=== PATIENT | male | born 1980 | race Caucasian/White ===

== ENCOUNTER 2016-11-14 15:17 | Emergency (ER) | payer MEDICARE, MEDICAID ==
[2016-11-14 15:28] VITALS: BP 145/73
--- NOTE | 2016-11-14 21:43 | ED ---
Throat Pain/Nasal Congestion - HPI Summary HPI Summary: Patient presents to the ED with swelling over the right parotid gland x 2 hours. He first noticed the swelling immediatley after eating. He has never had this before. The area has decreased in size since arrival to the ED according to him. The area is painless. He denies ear pain, eye pain, [place] or neck pain. Denies mouth pain or other symptoms. He is a smoker. He is otherwise healthy and has no other concerns. - History of Current Complaint Chief Complaint: EDGeneral Time Seen by Provider: 11/14/16 15:42 Hx Obtained From: Patient Onset/Duration: Sudden Onset Severity: Moderate - Epiglottits Risk Factors Epiglottis Risk Factors: Negative - Allergies/Home Medications Allergies/Adverse Reactions: Allergies Allergy/AdvReac Type Severity Reaction Status Date / Time No Known Allergies Allergy Verified 05/31/15 10:27 PMH/Surg Hx/FS Hx/Imm Hx Previously Healthy: Yes Psychiatric History: Reports: Hx of Violent Episodes Against Others, Other Psychiatric Issues/Disorders Denies: Hx Eating Disorder - Surgical History Surgery Procedure, Year, and Place: hiatal hernia repair - Immunization History Hx Pertussis Vaccination: No Immunizations Up to Date: Unable to Obtain/Confirm Infectious Disease History: No Infectious Disease History: Denies: History Other Infectious Disease, Traveled Outside the [place] in Last 30 Days - Family History Known Family History: Positive: Unknown - Social History Occupation: Employed Full-time Lives: With Family Alcohol Use: None Hx Substance Use: No Substance Use Type: Reports: None Smoking Status (MU): Light Every Day Tobacco Smoker Type: Cigarettes Amount Used/How Often: 1/2 ppd Have You Smoked in the Last Year: Yes Review of Systems Constitutional: Negative Negative: Fever, Chills, Fatigue Negative: Photophobia, Blurred Vision Negative: Epistaxis, Dental Pain, Nasal Discharge Cardiovascular: Negative Respiratory: Negative Positive: no symptoms reported, see HPI Musculoskeletal: Negative Skin: Negative Neurological: Negative All Other Systems Reviewed And Are Negative: Yes Physical Exam Triage Information Reviewed: Yes Vital Signs On Initial Exam: Initial Vitals Temp Pulse Resp BP Pulse Ox 97.2 F 80 20 145/73 98 11/14/16 15:26 11/14/16 15:26 11/14/16 15:26 11/14/16 15:26 11/14/16 15:26 Vital Signs Reviewed: Yes Appearance: Positive: Well-Appearing, No Pain Distress, Well-Nourished Skin: Positive: Warm, Skin Color Reflects Adequate Perfusion Head/Face: Positive: Other - slight swelling over the parotid gland on the right side without pain. Negative: Temporal Artery Tenderness, TMJ Tenderness ENT: Positive: Pharynx normal, TMs normal. Negative: Pharyngeal erythema, Nasal congestion, Nasal drainage, Tonsillar swelling, Tonsillar exudate, Muffled /hoarse voice, Dental tenderness Neck: Positive: Supple, No Lymphadenopathy Respiratory/Lung Sounds: Positive: Clear to Auscultation, Breath Sounds Present Cardiovascular: Positive: Normal, RRR, Pulses are Symmetrical in both Upper and Lower Extremities Musculoskeletal: Positive: Normal, Strength/ROM Intact Neurological: Positive: Sensory/Motor Intact, Alert, Oriented to Person Place, Time, Speech Normal Psychiatric: Positive: Normal AVPU Assessment: Alert Diagnostics - Vital Signs Vital Signs Temp Pulse Resp BP Pulse Ox 11/14/16 15:26 97.2 F 80 20 145/73 98 - Laboratory Lab Statement: Any lab studies that have been ordered have been reviewed, and results considered in the medical decision making process. EENT Course/Dx - Course Course Of Treatment: Patient is evaluated for right parotid gland swelling which occurred 2 hours ago and since has almost resolved per patient. Denies pain. Discussed with patient this is likely d/t a salivary stone. He states he has been dehyrated lately and he is a smoker and has a history of periodontal disease. These are all risk factors for sialadenitis which often when occurs - will be painless and resolve rather quickly. Discussed with patient treatment and how we will defer at this time for any antibiotics based on the resolution of symptoms. He is encouraged to use mouth wash - biotene. Stop smoking. Suck on hard candies - specifically lemon drops. He agrees and will follow up if symptoms worsen. - Differential Diagnoses Differential Diagnoses: Other - sialadenitis, parotid gland trauma, mumps, dental infection - Diagnoses Provider Diagnoses: Sialadenitis Discharge - Discharge Plan Condition: Stable Disposition: HOME Patient Education Materials: Parotid Duct Obstruction (ED), Sialoadenitis (ED) Referrals: No Primary Care Phys,NOPCP [Primary Care Provider] - Additional Instructions: Lemon drops are best, but any hard candy will work You can buy sugar free lemon drops in the candy section of any store Drink plenty of fluids If you develop any pain, return to the ED I do not feel you need antibiotics right now as the swelling has reduced, but if pain worsens or you notice worsening swelling - return to ED Stones usually will go away on their own with some help with fluids and hard sour candy.
== END 2016-11-14 17:56 | disposition home or self-care (01) ==
LOC: ED 15:17
DX: K11.20 Sialoadenitis, unspecified (principal); F17.210 Nicotine dependence, cigarettes, uncomplicated
CPT/HCPCS: 99282

== ENCOUNTER 2018-06-06 23:21 | Emergency (ER) | payer MEDICARE, MEDICAID ==
[2018-06-06] MEDS ORDERED: Clindamycin CAP* 150 MG PO ONE (23:56)
[2018-06-07 00:22] VITALS: BP 177/88
--- NOTE | 2018-06-07 02:16 | ED ---
Throat Pain/Nasal Congestion - HPI Summary HPI Summary: Patient is a 37-year-old male who presents to emergency department for dental pain and facial swelling. Patient states he called his dentist several days ago for dental pain and was started on penicillin. Patient states he took a few tablets and stopped taking prescription because he forgot. Patient states today he noticed facial swelling and was feeling feverish at work. No relevant past medical history. Symptoms are mild in severity. Touching affected area makes symptoms worse. Nothing makes symptoms better. Patient notes he has an apartment with his dentist on Friday. - History of Current Complaint Chief Complaint: EDDentalPain Time Seen by Provider: 06/06/18 23:39 Hx Obtained From: Patient - Allergies/Home Medications Allergies/Adverse Reactions: Allergies Allergy/AdvReac Type Severity Reaction Status Date / Time No Known Allergies Allergy Verified 05/31/15 10:27 Home Medications: Home Medications Metformin HCl [Metformin HCl ER] 500 mg PO DAILY 06/06/18 [History Confirmed ] Penicillin VK 500 MG TAB(NF) [Penicillin VK 500 mg Tab] 500 mg PO QID 06/06/18 [ History Confirmed 06/06/18] PMH/Surg Hx/FS Hx/Imm Hx Previously Healthy: Yes Psychiatric History: Reports: Hx of Violent Episodes Against Others, Other Psychiatric Issues/Disorders Denies: Hx Eating Disorder - Surgical History Surgery Procedure, Year, and Place: hiatal hernia repair Infectious Disease History: No Infectious Disease History: Denies: History Other Infectious Disease, Traveled Outside the [place] in Last 30 Days - Family History Known Family History: Positive: Unknown - Social History Occupation: Employed Full-time Lives: With Family Alcohol Use: None Hx Substance Use: No Substance Use Type: Reports: None Smoking Status (MU): Light Every Day Tobacco Smoker Type: Cigarettes Amount Used/How Often: 1/2 ppd Have You Smoked in the Last Year: Yes Review of Systems Positive: Chills Positive: Dental Pain Gastrointestinal: Negative Negative: Vomiting, Nausea All Other Systems Reviewed And Are Negative: Yes Physical Exam Triage Information Reviewed: Yes Vital Signs On Initial Exam: Initial Vitals Temp Pulse Resp BP Pulse Ox 98.8 F 88 18 155/93 99 06/06/18 23:35 06/06/18 23:35 06/06/18 23:35 06/06/18 23:35 06/06/18 23:35 Vital Signs Reviewed: Yes Appearance: Positive: Well-Appearing - Pt. sitting on bed in NAD. Skin: Positive: Warm, Dry Head/Face: Positive: Normal Head/Face Inspection Eyes: Positive: Normal, EOMI, JENNIE Dental: Positive: Other - Poor dentition throughout. Pain and decay noted to right lateral top incisor. No drainable abscess. Mild edema to upper lip and maxillary region. No trismus, swelling under tongue or submandibular edema. Neck: Positive: Supple, Nontender, No Lymphadenopathy Neurological: Positive: Normal, CN Intact II-III Psychiatric: Positive: Affect/Mood Appropriate Diagnostics - Vital Signs Vital Signs Temp Pulse Resp BP Pulse Ox 06/07/18 00:21 99.4 F 83 18 177/88 100 06/06/18 23:35 98.8 F 88 18 155/93 99 - Laboratory Lab Statement: Any lab studies that have been ordered have been reviewed, and results considered in the medical decision making process. EENT Course/Dx - Course Course Of Treatment: Patient presenting with likely dental abscess. He notes he was on penicillin for a few days without improvement. Was switched to clindamycin. Advised warm compresses. Ibuprofen for pain and swelling as directed. To follow up with dentist on Friday as scheduled. We'll return to the ER for increased pain, swelling, fever or if concerned. Patient understands and agrees with plan. - Differential Diagnoses Differential Diagnoses: Dental Abscess, Dental Caries, Periodontic Abscess - Diagnoses Provider Diagnoses: Dental abscess Discharge - Sign-Out/Discharge Documenting (check all that apply): Patient Departure Patient Received Moderate/Deep Sedation with Procedure: No - Discharge Plan Condition: Good Disposition: HOME Prescriptions: Clindamycin HCl 300 mg PO QID #40 capsule Patient Education Materials: Dental Abscess (ED) Referrals: [facility] [Outside] Additional Instructions: Follow up with your dentist on Friday as scheduled Take Clindamycin as directed Continue ibuprofen as directed Apply warm compresses to face Return to ER for increased pain, swelling, fever, or if concerned - Billing Disposition and Condition Condition: GOOD Disposition: Home
== END 2018-06-07 00:21 | disposition home or self-care (01) ==
LOC: ED 23:21
DX: K04.7 Periapical abscess without sinus (principal); R22.0 Localized swelling, mass and lump, head; F17.210 Nicotine dependence, cigarettes, uncomplicated; K08.89 Other specified disorders of teeth and supporting structures
CPT/HCPCS: 99282; A9270-GY

== ENCOUNTER 2019-03-10 12:20 | Emergency (ER) | payer MEDICARE, MEDICAID ==
--- OUTSIDE RECORDS SUMMARY | 2019-03-10 12:33 | XMS REPORT ---
:1980 Author Organization [facility] Care Team Providers Name Role Phone Zak Wilson Primary Care Physician Unavailable Allergies, Adverse Reactions, Alerts Allergy Code CodeSystem Reaction Severity Criticality Status Start Substance Date Moderate Medications Medication Medication Medication Start Stop Route Dose Status Fill Code CodeSystem Date Date Instructions clozapine 213155 RxNorm 2019- oral 200 mg 1 completed Take 1 tablet 03-05 07-09 tablet at at bedtime bedtime for 28 day(s) clonazepam 19740327 RxNorm 2019- oral 1 mg 1 completed Take 1 tablet 530 -28 tablet at at bedtime bedtime for 30 day(s) clozapine 452879 RxNorm 0 oral 50 mg 1 active Take 1 tablet 7-09 tablet at at bedtime bedtime for 28 day(s) lithium 19770925 RxNorm oral 300 mg 5 active Take 5 carbonate 7-09 capsule capsule at at bedtime for bedtime 30 day(s) clonazepam 19740327 RxNorm 0 oral 1 mg 1 active Take 1 tablet 7-30 tablet at at bedtime bedtime for 30 day(s) clonazepam 19740327 RxNorm 2019- oral 1 mg 1 completed Take 1 tablet 05-18 05-30 tablet at at bedtime bedtime for 30 day(s) clozapine 19740421 RxNorm 2019- oral 100 mg 1 completed Take 1 tablet 03-05 07-09 tablet at at bedtime bedtime for 28 day(s) lithium 19770925 RxNorm 2019- oral 300 mg completed for 30 carbonate 1- 07-09 capsule day(s) clozapine 926789 RxNorm 0 2019- oral 50 mg 1 completed Take 1 tablet 03-05 07-09 tablet at at bedtime bedtime for 28 day(s) metformin 792035 RxNorm 0 2019- oral 500 mg completed for 30 3-18 06-18 tablet day(s) extended release 24 hr clozapine 955468 RxNorm 2019-0 oral 100 mg 1 active Take 1 tablet 7-09 tablet at at bedtime bedtime for 28 day(s) clozapine 835807 RxNorm 2019-0 oral 200 mg 1 active Take 1 tablet 7-09 tablet at at bedtime bedtime for 28 day(s) metformin 596839 RxNorm 2019-0 oral 500 mg 2 active Take 2 tablet 6-18 tablet at bedtime extended for 30 day(s) release 24 hr at bedtime Problems Problem Name Code CodeSystem Alternate Alternate Start End Status Narrative Code CodeSystem Date Date Schizoaffective 98830759 SNOMED-CT Active disorder, manic 3-22 type Relevant diagnostic tests/laboratory data Narrative No Information Procedures Procedure Code CodeSystem Target Date of Status Service Device Device Device Name Site Procedure Delivery Code Name UID Location Psychotherap [id number] SNOMED-CT () 2019-01-05 complete Mental y, 45 04 d Health- minutes with [place] patient [address], [id number] [phone] Preventive 103880 SNOMED-CT () 2018-05-25 complete Mental medicine 0 d Health- counseling [place] and/or risk [place] factor [address] [facility] [address], (s) provided [place], to an [place], individual [id number] (separate [id number] procedure); approximatel y 15 minutes Preventive 680765 SNOMED-CT () 2018-12-15 complete Mental medicine 0 d Health- counseling [place] and/or risk [place] factor [address] [facility] [address], (s) provided [place], to [place], individual [id number] (separate [id number] procedure); approximatel y 15 minutes Preventive 215515 SNOMED-CT () 2018-11-18 complete Mental medicine 0 d Health- counseling [place] and/or risk [place] factor [address] [facility] [address], (s) provided [place], to [place], individual [phone] (separate [id number] procedure); approximatel y 15 minutes Preventive 073213 SNOMED-CT () 2018-09-21 complete Mental medicine 0 d Health- counseling [place] and/or risk [place] factor [address] [facility] [address], (s) provided [place], to [place], individual [phone] (separate [id number] procedure); approximatel y 15 minutes Preventive 139144 SNOMED-CT () 2018-06-22 complete Mental medicine 0 d Health- counseling [place] and/or risk [address], (s) [facility], to an [place], individual [phone] (separate [id number] procedure); approximatel y 15 minutes Office or 101072 SNOMED-CT () 2018-07-07 complete Mental other 7 d Health- outpatient [place] visit for [address], [facility], of an [place], established [id number] patient, [phone] which requires at least 2 of these 3 [place] components: An expanded problem focused history; An expanded problem focused examination; Medical decision making of low Office or 545217 SNOMED-CT () 2018-11-03 complete Mental other 7 d Health- outpatient [place] visit for [address], of [place], established [id number] patient, [phone] which requires at least 2 of these 3 [place] components: An expanded problem focused history; An expanded problem focused examination; Medical decision making of low Office or 867808 SNOMED-CT () 2018-08-04 complete Mental other 7 d Health- outpatient [place] visit for [address], of [place], established [id number] patient, [phone] which requires at least 2 of these 3 [place] components: An expanded problem focused history; An expanded problem focused examination; Medical decision making of low SNOMED-CT () 2018-06-15 complete Mental d Health- [place], [id number] [id number] SNOMED-CT () 2018-07-01 complete Mental d Health- [place], [id number] [phone] SNOMED-CT () 2018-08-10 complete Mental d Health- [place], [id number] [id number] SNOMED-CT () 2018-08-24 complete Mental d Health- [place], [id number] [phone] SNOMED-CT () 2018-09-02 complete Mental d [address], [id number] [phone] SNOMED-CT () 2018-09-16 complete Mental d [address], [id number] [phone] SNOMED-CT () 2018-07-27 complete Mental d [address], [id number] [phone] SNOMED-CT () 2018-10-06 [facility] Mental d [address], [id number] [id number] SNOMED-CT () 2018-10-20 [facility] Mental d [address], [id number] [id number] SNOMED-CT () 2018-11-03 [facility] Mental d [address], [id number] [phone] SNOMED-CT () 2018-11-25 [facility] Mental d [address], [id number] [phone] Encounters/Encounter Diagnoses Encounter Encounter Diagnosis Diagnosis Name Diagnosis Date of Service Name Code Code CodeSystem Diagnosis Delivery Location [facility] [id number] Schizoaffective SNOMED-CT 2019-01-11 Behavioral Monitoring - disorder, manic Health 15 min type Clinic , , , Vital Signs No Information Social History Element Description Description Start End Code CodeSystem AdditionalInfo Date Date SexAssignedAtBirth Male 1981-0 M AdministrativeGender 7-19 Hospital Discharge Instructions Reason For Referral Medical Equipment FDA Assessments
--- OUTSIDE RECORDS SUMMARY | 2019-03-10 12:33 | XMS REPORT ---
:1980 Author Organization [facility] Care Team Providers Name Role Phone Katie Zak Primary Care Physician Unavailable Allergies, Adverse Reactions, Alerts Allergy Code CodeSystem Reaction Severity Criticality Status Start Substance Date Moderate Medications Medication Medication Medication Start Stop Route Dose Status Fill Code CodeSystem Date Date Instructions clonazepam [id number] RxNorm 2019- oral 1 mg 1 completed Take 1 tablet 4 05-30 tablet at at bedtime bedtime for 30 day(s) metformin 441477 RxNorm 2018-0 oral 500 mg 2 active Take 2 tablet 6-18 tablet at bedtime extended for 30 day(s) release 24 hr at bedtime clozapine 19740421 RxNorm 2019- oral 100 mg 1 completed Take 1 tablet 1-17 07-09 tablet at at bedtime bedtime for 28 day(s) clozapine 466933 RxNorm 2018-0 2019- oral 50 mg 1 completed Take 1 tablet 1-17 07-09 tablet at at bedtime bedtime for 28 day(s) lithium 19770925 RxNorm 0 2019- oral 300 mg completed for 30 carbonate 1- 07-09 capsule day(s) clozapine 338837 RxNorm 2019-0 oral 50 mg 1 active Take 1 tablet 7-09 tablet at at bedtime bedtime for 28 day(s) clozapine 19740421 RxNorm 2019-0 oral 100 mg 1 active Take 1 tablet 7-09 tablet at at bedtime bedtime for 28 day(s) lithium 19770925 RxNorm 2019-0 oral 300 mg 5 active Take 5 carbonate 7-09 capsule capsule at at bedtime for bedtime 30 day(s) clonazepam 19740327 RxNorm 0 2019- oral 1 mg 1 completed Take 1 tablet 5-30 07-28 tablet at at bedtime bedtime for 30 day(s) clozapine 662433 RxNorm 2019-0 oral 200 mg 1 active Take 1 tablet 7-09 tablet at at bedtime bedtime for 28 day(s) clozapine 979846 RxNorm 2019-0 2019- oral 200 mg 1 completed Take 1 tablet 03-05 07-09 tablet at at bedtime bedtime for 28 day(s) metformin 840666 RxNorm 2019- oral 500 mg completed for 30 3-18 06-18 tablet day(s) extended release 24 hr clonazepam 266336 RxNorm oral 1 mg 1 active Take 1 tablet 7-30 tablet at at bedtime bedtime for 30 day(s) Problems Problem Name Code CodeSystem Alternate Alternate Start End Status Narrative Code CodeSystem Date Date Cannabis [id number] SNOMED-CT 2018-02 Active dependence, in 2-13 remission Schizoaffective 87871109 SNOMED-CT Active disorder, manic 3-22 type Relevant diagnostic tests/laboratory data Narrative No Information Procedures Procedure Code CodeSystem Target Date of Status Service Device Device Device Name Site Procedure Delivery Code Name UID Location Psychotherap [id number] SNOMED-CT () 2019-02-02 complete Mental y, 45 04 d Health- minutes with [place] patient [address], [id number] [phone] Psychotherap [id number] SNOMED-CT () 2019-01-05 complete Mental y, 45 04 d Health- minutes with [place] patient [address], [id number] [phone] Preventive 733601 SNOMED-CT () 2019-01-11 complete Mental medicine 0 d Health- counseling [place] and/or risk [facility] factor [address] [place] [address], (s) provided [place], to an [facility] individual [phone] (separate [id number] procedure); approximatel y 15 minutes Preventive 229310 SNOMED-CT () 2018-05-25 complete Mental medicine 0 d Health- counseling [place] and/or risk [place] factor [address] [place] [address], (s) provided [place], to an [place], individual [phone] (separate [id number] procedure); approximatel y 15 minutes Preventive 124802 SNOMED-CT () 2018-12-15 complete Mental medicine 0 d Health- counseling [place] and/or risk [facility] factor [address] [place] [address], (s) provided [place], to an [place], individual [phone] (separate [id number] procedure); approximatel y 15 minutes Preventive 140373 SNOMED-CT () 2018-11-18 complete Mental medicine 0 d Health- counseling [place] and/or risk [place] factor [address] [place] [address] Street, (s) provided [place], to an [place], individual [phone] (separate [id number] procedure); approximatel y 15 minutes Preventive 896483 SNOMED-CT () 2018-09-21 complete Mental medicine 0 d Health- counseling [place] and/or risk [place] factor [address] [facility] [address], (s) provided [place], to an [place], individual [phone] (separate [id number] procedure); approximatel y 15 minutes Preventive 755092 SNOMED-CT () 2018-06-22 complete Mental medicine 0 d Health- counseling [place] and/or risk [place] [address] [place] [address] Street, (s) provided [place], to an [place], individual [phone] (separate [id number] procedure); approximatel y 15 minutes Office or 910050 SNOMED-CT () 2018-07-07 complete Mental other 7 d Health- outpatient [place] visit for [address], of an [place], established [id number] patient, [phone] which requires at least 2 of these 3 [place] components: An expanded problem focused history; An expanded problem focused examination; Medical decision making of low Office or 925231 SNOMED-CT () 2018-11-03 complete Mental other 7 d Health- outpatient [place] visit for [address], of an [place], established [id number] patient, [phone] which requires at least 2 of these 3 [place] components: An expanded problem focused history; An expanded problem focused examination; Medical decision making of low Office or 789388 SNOMED-CT () 2018-08-04 complete Mental other 7 d Health- outpatient [place] visit for [address], of an [place], established [id number] patient, [phone] which requires at least 2 of these 3 [place] components: An expanded problem focused history; An expanded problem focused examination; Medical decision making of low Office or 679877 SNOMED-CT () 2019-02-02 complete Mental other 8 d Health- outpatient [place] visit for [address], [facility] [place], an [place], established [id number] patient, [phone] which requires at least 2 of these 3 [place] components: A detailed history; A detailed examination; Medical decision making of moderate complexity. Counseling and/o SNOMED-CT () 2019-02-09 [facility] Mental d [address], [id number] [phone] SNOMED-CT () 2019-01-25 complete Mental d [address], [id number] [phone] SNOMED-CT () 2018-06-15 complete Mental d [address], [id number] [phone] SNOMED-CT () 2018-07-01 complete Mental d [address], [id number] [phone] SNOMED-CT () 2018-08-10 complete Mental d [address], [id number] [phone] SNOMED-CT () 2018-08-24 complete Mental d [address], [id number] [phone] SNOMED-CT () 2018-11-25 complete Mental d [address], [id number] [phone] SNOMED-CT () 2018-09-02 complete Mental d [address], [id number] [phone] SNOMED-CT () 2018-09-16 complete Mental d [address], [id number] [phone] SNOMED-CT () 2018-07-27 complete Mental d [address], [id number] [phone] SNOMED-CT () 2018-10-06 complete Mental d [address], [id number] [phone] SNOMED-CT () 2018-10-20 complete Mental d [address], [id number] [phone] SNOMED-CT () 2018-11-03 complete Mental d [address], [id number] [phone] Encounters/Encounter Diagnoses Encounter Name Encounter Diagnosis Diagnosis Name Diagnosis Date of Service Code Code CodeSystem Diagnosis Delivery Location Psychotherapy - [id number] Schizoaffective SNOMED-CT 2019-02-09 Behavioral Individual 30 disorder, manic Health min type Clinic [address] [place] [address], [phone] Vital Signs No Information Social History Element Description Description Start End Code CodeSystem AdditionalInfo Date Date SexAssignedAtBirth Male 1981-0 M AdministrativeGender 09-04 Hospital Discharge Instructions Reason For Referral Medical Equipment FDA Assessments
--- OUTSIDE RECORDS SUMMARY | 2019-03-10 12:33 | XMS REPORT ---
:1980 Author Organization [facility] Care Team Providers Name Role Phone Zak Wilson Primary Care Physician Unavailable Allergies, Adverse Reactions, Alerts Allergy Code CodeSystem Reaction Severity Criticality Status Start Substance Date Moderate Medications Medication Medication Medication Start Stop Route Dose Status Fill Code CodeSystem Date Date Instructions lithium 19770925 RxNorm 0 oral 300 mg 5 active Take 5 carbonate 7-09 capsule capsule at at bedtime for bedtime 30 day(s) lithium 19770925 RxNorm 0 2019- oral 300 mg completed for 30 carbonate 1-09 07-09 capsule day(s) clozapine 861013 RxNorm 2019-0 oral 200 mg 1 active Take 1 tablet 7-09 tablet at at bedtime bedtime for 28 day(s) clozapine 557904 RxNorm 2019-0 oral 50 mg 1 active Take 1 tablet 7-09 tablet at at bedtime bedtime for 28 day(s) clozapine 903458 RxNorm 2018-0 2019- oral 100 mg 1 completed Take 1 tablet 1-17 07-09 tablet at at bedtime bedtime for 28 day(s) metformin 700126 RxNorm 2019-0 oral 500 mg 2 active Take 2 tablet 6-18 tablet at bedtime extended for 30 day(s) release 24 hr at bedtime clozapine 397077 RxNorm 2019-0 2019- oral 50 mg 1 completed Take 1 tablet 1-17 07-09 tablet at at bedtime bedtime for 28 day(s) clozapine 589680 RxNorm 2019-0 oral 100 mg 1 active Take 1 tablet 7-09 tablet at at bedtime bedtime for 28 day(s) clonazepam 19740327 RxNorm 2019-0 2019- oral 1 mg 1 completed Take 1 tablet 4 05-30 tablet at at bedtime bedtime for 30 day(s) clonazepam 19740327 RxNorm 2019-0 2019- oral 1 mg 1 completed Take 1 tablet 530 07-28 tablet at at bedtime bedtime for 30 day(s) clozapine 812353 RxNorm 2019-0 2019- oral 200 mg 1 completed Take 1 tablet 1-17 07-09 tablet at at bedtime bedtime for 28 day(s) clonazepam 373104 RxNorm oral 1 mg 1 active Take 1 tablet 7-30 tablet at at bedtime bedtime for 30 day(s) metformin 964494 RxNorm 2019- oral 500 mg completed for 30 3-18 06-18 tablet day(s) extended release 24 hr Problems Problem Name Code CodeSystem Alternate Alternate Start End Status Narrative Code CodeSystem Date Date Cannabis 39882716 SNOMED-CT 2018-02 Active dependence, in 2-13 remission Schizoaffective 78608782 SNOMED-CT Active disorder, manic 3-22 type Relevant diagnostic tests/laboratory data Narrative No Information Procedures Procedure Code CodeSystem Target Date of Status Service Device Device Device Name Site Procedure Delivery Code Name UID Location Psychotherap [id number] SNOMED-CT () 2019-01-05 complete Mental y, 45 04 d Health- minutes with Coffee patient [address], [id number] Preventive 813332 SNOMED-CT () 2019-01-11 complete Mental medicine 0 d Health- counseling [place] and/or risk [place] factor [address], (s) provided [place], to an [facility] individual [id number] (separate [id number] procedure); approximatel y 15 minutes Preventive 838542 SNOMED-CT () 2018-05-25 complete Mental medicine 0 d Health- counseling [place] and/or risk [place] factor [address], (s) [place], [facility] [phone] (separate [id number] procedure); approximatel y 15 minutes Preventive 002149 SNOMED-CT () 2018-12-15 complete Mental medicine 0 d Health- counseling [place] and/or risk [place] factor [address], (s) provided [place], to an [facility], individual [phone] (separate [id number] procedure); approximatel y 15 minutes Preventive 899118 SNOMED-CT () 2018-11-18 complete Mental medicine 0 d Health- counseling [place] and/or risk [place] factor [address], (s) provided [place], to an [facility], individual [phone] (separate [id number] procedure); approximatel y 15 minutes Preventive 637891 SNOMED-CT () 2018-09-21 complete Mental medicine 0 d Health- counseling [place] and/or risk [address], (s) provided [place], to an [facility], individual [phone] (separate [id number] procedure); approximatel y 15 minutes Preventive 788391 SNOMED-CT () 2018-06-22 complete Mental medicine 0 d Health- counseling [place] and/or risk [address], (s) provided [place], to an [facility], individual [phone] (separate [phone] procedure); approximatel y 15 minutes Office or 597665 SNOMED-CT () 2018-07-07 complete Mental other 7 d Health- outpatient [place] visit for [address], of an [facility], established [id number] patient, [id number] which requires at least 2 of these 3 [place] components: An expanded problem focused history; An expanded problem focused examination; Medical decision making of low Office or 958659 SNOMED-CT () 2018-11-03 complete Mental other 7 d Health- outpatient Coffee visit for [address], of an [place], established [phone] patient, [id number] which requires at least 2 of these 3 [place] components: An expanded problem focused history; An expanded problem focused examination; Medical decision making of low Office or 092047 SNOMED-CT () 2018-08-04 complete Mental other 7 d Health- outpatient [place] visit for [address], of an [place], established [id number] patient, [id number] which requires at least 2 of these 3 [place] components: An expanded problem focused history; An expanded problem focused examination; Medical decision making of low SNOMED-CT () 2018-06-15 complete Mental d Health- [address], [id number] SNOMED-CT () 2018-07-01 complete Mental d Health- [address], [id number] SNOMED-CT () 2018-08-10 complete Mental d [address], [id number] SNOMED-CT () 2018-08-24 complete Mental d [address], [id number] SNOMED-CT () 2018-09-02 [facility] Mental d [address], [id number] SNOMED-CT () 2018-09-16 [facility] Mental d [address], [id number] SNOMED-CT () 2018-07-27 [facility] Mental d [address], [id number] SNOMED-CT () 2018-10-06 [facility] Mental d [address], [id number] SNOMED-CT () 2018-10-20 [facility] Mental d [address], [id number] SNOMED-CT () 2018-11-03 [facility] Mental d [address], [id number] SNOMED-CT () 2018-11-25 [facility] Mental d [address], [id number] SNOMED-CT () 2019-01-25 [facility] Mental d [address], [id number] Encounters/Encounter Diagnoses Encounter Name Encounter Diagnosis Diagnosis Name Diagnosis Date of Service Code Code CodeSystem Diagnosis Delivery Location [facility] [id number] Schizoaffective SNOMED-CT 2019-02-02 Behavioral Individual 30 disorder, manic Health min type Clinic , , , Vital Signs No Information Social History Element Description Description Start End Code CodeSystem AdditionalInfo Date Date SexAssignedAtBirth Male 1981-0 M AdministrativeGender 7-19 Hospital Discharge Instructions Reason For Referral Medical Equipment FDA Assessments
--- OUTSIDE RECORDS SUMMARY | 2019-03-10 12:33 | XMS REPORT | Continuity of Care Document ---
:1980 External Reference #:[id number] Author Name Linda Lezama, DERICK Address [address] [place] [address] Care Team Providers Name Role Phone [facility] - Care Team Information [facility] [phone] [facility] - Surgery Care Team Information [facility] [phone] Niranjan Jordan MD - Family Care Team Information [employer] [facility] [phone] Medicine Problems Active Problems Provider Date Gastroesophageal reflux disease Haroon Paul M.D. Onset: 01/28/2012 Bipolar disorder Haroon Paul M.D. Onset: 12/23/2012 Chronic schizoaffective schizophrenia Haroon Paul M.D. Onset: 2012 Schizoaffective schizophrenia Olivia Crockett M.D. Onset: 04/13/2018 Impaired fasting glycaemia Olivia Crockett M.D. Onset: 05/05/2018 Hyperlipidemia Olivia Crockett M.D. Onset: 05/06/2018 Social History Type Date Description Comments Sex Unknown Tobacco Use Start: Unknown Current Cigarette Smoker smoked since age 15, 1/2 Pack Daily has quit a few times for as long as a month--hopes to quit for good sometime ETOH Use Rare Recreational Drug Use Denies Drug Use Tobacco Use Start: Unknown Patient is a current thinks of quitting smoker, smokes every day but has never quit , though has gotten to 3 cigs a day Smoking Status Reviewed: 01/30/19 Patient is a current thinks of quitting smoker, smokes every day but has never quit , though has gotten to 3 cigs a day Allergies, Adverse Reactions, Alerts Active Allergies Reaction Severity Comments Date NKDA 09/27/2015 Inactive Allergies Clozaril 04/03/2007 Medications Active Medications SIG Qnty Indications Ordering Provider Date Esomeprazole 1 po qd 30caps Jennifer Pretty, 01/30/2019 Magnesium Caseynp-C 40mg Capsules DR Stanford 1 tab at bedtime DARREL Soliman 03/21/2017 50mg Tablets Lithobid 5 po every [facility] 04/13/2013 300mg Tablets evening [facility] Klonopin 1 by mouth once Unknown 1mg Tablets a day as needed Clozapine one tab every Unknown 200mg Tablets evening Clozapine 1 tab daily at Unknown 100mg Tablets bedtime Metformin HCL 2 by mouth once Unknown 500mg a day Tablets History Medications Note seen in this R53.83 Jennifer 01/30/2019 - office today, Katja Pretty 01/31/2019 medically excused from work today Azithromycin take 2 tablets 6tabs Dewayne Raya, 12/21/2018 - 250mg (500 mg) day 1 M.D. 01/30/2019 Tablets then 250 mg x 4 days. Guaifenesin ER take 1 tablet 30tabs Dewayne Raya, 12/21/2018 - 1200mg every 12 hours. M.D. 03/03/2019 Tablets ER 12HR Ra Nicotine Gum Dose: 2 mg PO 30units Dewayne Raya, 12/21/2018 - 2mg q1-2h x6wk Max: M.D. 03/03/2019 Gum 24 pieces/24h Immunizations CPT Code Status Date Vaccine Lot # [id number] Given 03/28/2009 MMR Virus Immunization [id number] Given 02/14/2009 Meningococcal Conjugate Vaccine,Serogroups For [id number] Intramuscular Use 17930 Given 02/14/2009 MMR Virus Immunization [id number] Vital Signs Date Vital Result Comment 03/03/2019 3:06pm BP Systolic 144 mmHg BP Diastolic 84 mmHg Heart Rate 68 /min Body Temperature 98.0 F Respiratory Rate 17 /min Height 68 inches 5'8" Weight 286.00 lb BMI (Body Mass Index) 43.5 kg/m2 01/30/2019 10:40am BP Systolic 136 mmHg BP Diastolic 94 mmHg Heart Rate 68 /min Body Temperature 98.2 F Height 68 inches 5'8" Weight 270.00 lb BMI (Body Mass Index) 41.0 kg/m2 Results Test Acquired Date Facility Test Result H/L Range Note CBC Electronic Fma 12/21/2018 Andrea Shi([facility] WBC 9.0 x10^3/UL 4.0- 10.0 RBC 4.29 x10^6/UL 3.93-6.00 HGB 13.3 g/dL 12.0-17.0 HCT 39 % 35-50 MCV 91.4 fL 80.0-95.0 MCH 31.0 pg 25.6-32.2 MCHC 33.9 g/dL 32.2-36.0 RDW-CV 13.0 % 11.6-14.4 PLT 261 x10^3/UL 163-400 MPV 9.4 fL 9.4-12.4 Henri# 6.06 x10^3/UL 1.56-6.13 Lymph# 1.90 x10^3/UL 1.18-3.74 [place]# 0.85 x10^3/UL High 0.24-0.82 Eos # 0.2 x10^3/UL 0.0-0.5 Baso # 0.03 x10^3/UL 0.01-0.08 Henri% 67.1 % 34.0-70.0 Lymph % 21.0 % 20.0-52.0 [place]% 9.4 % 5.0-12.0 Eos% 2.0 % 0.7-7.0 Baso% 0.3 % 0.1-1.2 Comprehensive Metabolic 12/21/2018 Andrea Shi([facility]) Sodium 137 mEq/L 134-149 Prof Potassium 3.9 mEq/L 3.6-5.5 Chloride 106 mEq/L 94-112 Carbon Dioxide 23 mEq/L 21-32 Glucose 131 mg/dL High 70-105 1 BUN 19 mg/dL 6-26 Creatinine 0.8 mg/dL 0.6-1.4 BUN/Creat Ratio 23.8 CALC 8.0-36.0 Calcium 10.0 mg/dL 8.6-10.2 Total Protein 7.7 g/dL 6.4-8.3 Albumin 4.7 g/dL 3.8-5.5 Globulin 3.0 g/dL 2.0-4.8 A/G Ratio 1.6 CALC 0.6-2.3 Alk. Phosphatase 105 U/L High 22-95 2 Alt (SGPT) 15 U/L 7-35 Ast (Sgot) 19 U/L 5-34 Total Bilirubin 0.2 mg/dL 0.2-1.3 GFR Non- >60 ml/min/1.73m^ >=60 GFR >60 ml/min/1.73m^ >=60 Laboratory test finding 12/21/2018 [facility] Procalcitonin, Serum 0.11 ng/mL < =0.15 3 1 NON-FASTING 2 consistent w/ previous results 3 Test Performed by: [facility] [address] [place] [address] [employer] Furnace Operator: Joey Yeung M.D. Ph.D.; CLIA# [id number] Procedures Description No Information Available Medical Devices Description No Information Available Encounters Type Date Location Provider Dx Diagnosis Office Visit 01/30/2019 10:45a Main Office Jennifer Pretty, R53.83 Other fatigue [place] K21.9 Gastro-esophageal reflux disease without esophagitis Office Visit 12/28/2018 11:00a [facility] [place] An15.9 Unspecified AGNIESZKA Daniel bacterial pneumonia F17.210 Nicotine dependence, cigarettes, uncomplicated Z71.6 Tobacco abuse counseling Office Visit 12/21/2018 2:15p [facility] [place] Vo.9 Unspecified AGNIESZKA Daniel bacterial pneumonia F17.210 Nicotine dependence, cigarettes, uncomplicated Z71.6 Tobacco abuse counseling Assessments Date Code Description Provider 03/03/2019 K21.9 Gastro-esophageal reflux disease without Linda Lezama NP esophagitis 03/03/2019 R53.83 Other fatigue Linda Lezama NP 03/03/2019 E66.9 Obesity, unspecified Linda Lezama NP 01/30/2019 R53.83 Other fatigue Katja Mclean 01/30/2019 K21.9 Gastro-esophageal reflux disease without [place] esophagitis 12/28/2018 J15.9 Unspecified bacterial pneumonia AGNIESZKA Murphy 12/28/2018 F17.210 Nicotine dependence, cigarettes, AGNIESZKA Murphy uncomplicated 12/28/2018 Z71.6 Tobacco abuse counseling AGNIESZKA Murphy 12/21/2018 J15.9 Unspecified bacterial pneumonia AGNIESZKA Murphy 12/21/2018 F17.210 Nicotine dependence, cigarettes, AGNIESZKA Murphy uncomplicated 12/21/2018 Z71.6 Tobacco abuse counseling AGNIESZKA Murphy Plan of Treatment 03/03/2019 - Linda Lezama, NPK21.9 Gastro-esophageal reflux disease without esophagitisComments:Your symptoms have resolved. However, if you feel short of breath, tightness in your chest, or worsening wheezing, please return to our office.R53.83 Other fatigueComments:* eat real food that is home cooked and based on fruits, vegetables, and whole grains as much as possible. Try to keep portion sizes small but eat every 2-3 hours* keep a consistent bedtime. Not everyone thrives on 8 hours of sleep; try to leave yourself time for 8.5 or 9 hours of sleep* (this is a hard one, but SO IMPORTANT) get regular exercise. If not every day then try for every other day. A walk, shoveling, yoga at home, anything that helps you move your body for a sustained period of time* adda vitamin D supplement every day 1000 to 2000iu daily (we are all somewhat deficient at this latitude)* try out a light box -- usually people put them on for about 20 minutes at an indirect angle earlyin the morning. All the darkness at this time of year can really be umwhsbiZ37.9 Obesity, unspecifiedComments: Your current Body Mass Index puts you in the category of obesity, which is a risk factor for many diseases, including diabetes, different cancers, heart disease, and others. It can feel overwhelming tothink that EVERYTHING has to change in order to improve you health, so take comfort in the fact thatsmall changes can have big benefit. Even losing just 5% of your body weight can change your blood pressure, cholesterol, and risk factors for disease. Without losing weight, adding exercise can improvemood, insulin sensitivity, and raise your "good cholesterol."Set goals you can easily achieve and build on that. Try for just 1 or 2 times per week when you can do some sort of exercise that raises your heart rate for at least 30 minutes. Cut down (or cut out) sweet drinks: soda, sweetened coffee, andfruit juice all have more calories than most people think. Add fruits and vegetables to your diet.Itis hard to work against longstanding habits, especially when work and family take so much energy. But putting in effort to exercise and pay attention to your diet can have a profoundly positive impact on the length and quality of your life!AllComments: 1. Patient has been queried about patient's goals/preferences and functional/ lifestyle goals at relevant visits. If relevant, describe: Has been discussed, noted above2. Treatment goals as explainedto the patient: see above3. Are there barriers to meeting treatment goals? Yes If Yes, please describe: Barriers include possible insurance limits, disease process, and difficulty with lifestyle changes4. Self-Management goals as described to the patient: Yes , see above As always, we strongly encourage a healthy diet and making physical activity a part of your every day life. If you have questions about how or where to start, please contact the office.. Functional Status Description No Information Available Mental Status Description No Information Available Referrals Description No Information Available
[2019-03-10] MEDS ORDERED: Ibuprofen TAB* 600 MG PO ONE (12:55)
--- NOTE | 2019-03-10 13:02 | ED ---
Lower Extremity - HPI Summary HPI Summary: Patient is a 38 y/o M presenting to [facility] with complaints of right knee pain. He reports that he has been experiencing this knee pain for "a while" but reports a recent exacerbation. He states that he was walking to his car when he felt like something "shifted" at his right knee. Pain suddenly worsened after this incident. Patient denies any notable abnormal movements with this sudden exacerbation. He notes that while walking to his ED room, he had a limp but his pain was less significant. Patient states that he stands frequently at his job and in life. On triage, pain is rated 3/10, ambulation is noted to aggravate Sx. Home medications and allergies are reviewed. - History of Current Complaint Chief Complaint: EDExtremityLower Stated Complaint: RT LEG PAIN PER PT Time Seen by Provider: 03/10/19 12:43 Hx Obtained From: Patient Onset of Pain: Prior to Arrival Onset/Duration: Worse Since Severity Initially: Mild Severity Currently: Mild Pain Intensity: 3 Pain Scale Used: 0-10 Numeric Timing: Constant Location: Is Discrete @ - right knee Associated Signs And Symptoms: Positive: Negative Aggravating Factor(s): Ambulation - Allergies/Home Medications Allergies/Adverse Reactions: Allergies Allergy/AdvReac Type Severity Reaction Status Date / Time No Known Allergies Allergy Verified 03/10/19 13:04 PMH/Surg Hx/FS Hx/Imm Hx Sensory History: Denies: Hx Legally Blind, Hx Deafness Opthamlomology History: Denies: Hx Legally Blind EENT History: Denies: Hx Deafness Psychiatric History: Reports: Hx of Violent Episodes Against Others, Other Psychiatric Issues/Disorders Denies: Hx Eating Disorder - Surgical History Surgery Procedure, Year, and Place: hiatal hernia repair Infectious Disease History: No Infectious Disease History: Denies: History Other Infectious Disease, Traveled Outside the [place] in Last 30 Days - Family History Known Family History: Negative: Cardiac Disease, Hypertension, Diabetes - Social History Alcohol Use: None Hx Substance Use: No Substance Use Type: Reports: None Smoking Status (MU): Light Every Day Tobacco Smoker Type: Cigarettes Amount Used/How Often: 1/2 ppd Have You Smoked in the Last Year: Yes Review of Systems Negative: Fever - on vitals, temp is 96.6 F Positive: Myalgia - right knee pain All Other Systems Reviewed And Are Negative: Yes Physical Exam - Summary Physical Exam Summary: Constitutional: Well-developed, Well-nourished, Alert. (-) Distressed Skin: Warm, Dry HENT: Normocephalic; Atraumatic Eyes: Conjunctiva normal Neck: Musculoskeletal ROM normal neck. (-) JVD, (-) Stridor, (-) Tracheal deviation Cardio: Rhythm regular, rate normal, Heart sounds normal; Intact distal pulses; Radial pulses are 2+ and symmetric. (-) Murmur Pulmonary/Chest wall: Effort normal. (-) Respiratory distress, (-) Wheezes, (-) Rales Abd: Soft, (-) tenderness, (-) Distension, (-) Guarding, (-) Rebound Musculoskeletal: There is no bony tenderness, no medial or lateral joint laxity , anterior and posterior drawer sign negative. (-) Edema Lymph: (-) Cervical adenopathy Neuro: Alert, Oriented x3 Psych: Mood and affect Normal Triage Information Reviewed: Yes Vital Signs On Initial Exam: Initial Vitals Temp Pulse Resp BP Pulse Ox 96.6 F 93 18 158/122 99 03/10/19 12:24 03/10/19 12:24 03/10/19 12:24 03/10/19 12:24 03/10/19 12:24 Vital Signs Reviewed: Yes Procedures - Sedation Patient Received Moderate/Deep Sedation with Procedure: No Diagnostics - Vital Signs Vital Signs Temp Pulse Resp BP Pulse Ox 03/10/19 12:24 96.6 F 93 18 158/122 99 - Laboratory Lab Statement: Any lab studies that have been ordered have been reviewed, and results considered in the medical decision making process. - Radiology RIGHT KNEE X-RAY Radiology Interpretation Completed By: Radiologist Summary of Radiographic Findings: IMPRESSION: 1. SMALL JOINT EFFUSION, NO FRACTURE IS SEEN. 2. MILD TO MODERATE OSTEOARTHRITIC CHANGE. THIS REPORT WAS REVIEWED BY ED PHYSICIAN. Lower Extremity Course/Dx - Course Course Of Treatment: Patient's here with acute on chronic right knee pain. Patient is able ambulate and actually felt better walking to the room than he did in the waiting room. Patient has full range motion his knee with no joint laxity. Patient had an x-ray which showed a small effusion and evidence of osteoarthritis. Patient was encouraged to lose weight and to do conservative management. Patient was discharged with orthopedic surgery follow-up - Diagnoses Provider Diagnoses: Right knee pain Discharge ED - Sign-Out/Discharge Documenting (check all that apply): Patient Departure - discharge - Discharge Plan Condition: Stable Disposition: HOME Patient Education Materials: Knee Pain (ED) Referrals: Olivia Crockett MD [Primary Care Provider] - 3 Days Nkaul Johnson MD [Medical Doctor] - 3 Days Additional Instructions: Please follow up with an orthopedic doctor within three days. If you continue to have pain, use your gabino bandage. Ice your knee. Take Tylenol and Motrin for pain. Please return to ED for any new or worsening symptoms. - Billing Disposition and Condition Condition: STABLE Disposition: Home - Attestation Statements Document Initiated by Satish: Yes Documenting Scribe: COCO DIETRICH Provider For Whom Satish is Documenting (Include Credential): VIK VIERA MD Scribe Attestation: COCO Young, scribed for VIK VIERA MD on 03/11/19 at 0714. Scribe Documentation Reviewed: Yes Provider Attestation: The documentation as recorded by the COCO mccall accurately reflects the service I personally performed and the decisions made by , VIK VIERA MD Status of Scribe Document: Viewed
[2019-03-10 14:21] VITALS: BP 130/89
== END 2019-03-10 14:12 | disposition home or self-care (01) ==
LOC: ED 12:20
DX: M25.561 Pain in right knee (principal); F17.210 Nicotine dependence, cigarettes, uncomplicated; M25.461 Effusion, right knee; M17.11 Unilateral primary osteoarthritis, right knee
CPT/HCPCS: 99282; A9270-GY

== ENCOUNTER 2020-10-10 18:22 | Inpatient (IN) ==
[2020-10-10 19:48] LABS: ABS Eosinophils 0.1 10^3/ul (0-0.6); ABS Lymphocytes 1.9 10^3/ul (1.0-4.8); ABS Monocytes 0.7 10^3/ul (0-0.8); ABS Neutrophils 6.3 10^3/ul (1.5-7.7); Eosinophil % 0.9 %; Hematocrit 39 % (42-52); Lymphocyte % 20.9 %; Mean Corpuscular HGB Conc 34 g/dL (31-36); Mean Corpuscular Hemoglobin 31 pg (27-31); Mean Corpuscular Volume 90 fL (80-94); Mean Platelet Volume 8.3 fL (7.4-10.4); Platelet Count 257 10^3/uL (150-450); Red Blood Count 4.27 10^6 /uL (4.18-5.48); Red Cell Distribution Width 14 % (10-15)
[2020-10-10 20:12] LABS: ALT 16 U/L (7-52); AST 17 U/L (13-39); Albumin 4.6 g/dL (3.2-5.2); Albumin/Globulin Ratio 1.8 (1-3); Alkaline Phosphatase 93 U/L (35-149); Anion Gap 5 mmol/L (2-11); Blood Urea Nitrogen 14 mg/dL (6-24); CO2 Carbon Dioxide 27 mmol/L (22-32); Calcium 9.8 mg/dL (8.6-10.3); Chloride 102 mmol/L (101-111); EGFR African American 100.8 (>60); EGFR Non-African American 83.3 (>60); Globulin 2.6 g/dL (2-4); Glucose 102 mg/dL (70-100); Magnesium 2.3 mg/dL (1.9-2.7); Potassium 3.5 mmol/L (3.5-5.0); Sodium 134 mmol/L (135-145); Total Protein 7.2 g/dL (6.4-8.9)
[2020-10-10 20:23] LABS: Acetaminophen < 15 mcg/mL; Alcohol, S < 13 mg/dL (<13); Lithium 1.16 mmol/L (0.6-1.2); Salicylate < 2.50 mg/dL (<30)
[2020-10-10 20:37] LABS: TSH Ultra Thyroid Stim Horm 1.93 mcIU/mL (0.34-5.60)
[2020-10-10 22:21] LABS: Urine Appearance Cloudy; Urine Bilirubin Negative (Negative); Urine Blood Negative (Negative); Urine Color Yellow; Urine Glucose Negative (Negative); Urine Ketones Negative (Negative); Urine Nitrite Negative (Negative); Urine Protein 2+(100 mg/dL) (Negative); Urine Specific Gravity 1.014 (1.002-1.030); Urine Urobilinogen Negative (Negative)
[2020-10-10 22:25] LABS: Urine Bacteria 1+ (Absent); Urine Red Blood Cell Trace(0-2/hpf) (Absent); Urine White Blood Cell 2+(11-20/hpf) (Absent)
[2020-10-10 22:31] LABS: Urine Benzodiazepine Screen None Detected (None Detect); Urine Cannabinoids Screen None Detected (None Detect); Urine Opiates Screen None Detected (None Detect)
[2020-10-11] MEDS ORDERED: Al Hydrox/Mg Hydrox/Simet LIQ 30 ML UDC PO PRN (09:09)
[2020-10-11] MEDS ORDERED: Nicotine GUM 2MG FRUIT FLAVOR PO PRN (09:10)
[2020-10-11] MEDS: Nicotine PATCH 14 MG/24 HR PATCH TRANSDERM SCH (12:37)
[2020-10-11] MEDS: Vitamin THERAPEUTIC TAB PO SCH (12:38)
[2020-10-12] MEDS: Nicotine PATCH 14 MG/24 HR PATCH TRANSDERM SCH (11:24)
[2020-10-12] MEDS: Vitamin THERAPEUTIC TAB PO SCH (11:24)
[2020-10-12] MEDS ORDERED: Ondansetron ODT 4 mg TAB 4 MG TAB PO PRN (11:32)
[2020-10-12 18:52] LABS: ABS Eosinophils 0.2 10^3/ul (0-0.6); ABS Lymphocytes 2.6 10^3/ul (1.0-4.8); ABS Monocytes 0.9 10^3/ul (0-0.8); ABS Neutrophils 7.1 10^3/ul (1.5-7.7); Eosinophil % 1.8 %; Hematocrit 40 % (42-52); Hemoglobin 13.2 g/dL (14.0-18.0); Lymphocyte % 23.8 %; Mean Corpuscular HGB Conc 33 g/dL (31-36); Mean Corpuscular Hemoglobin 30 pg (27-31); Mean Corpuscular Volume 91 fL (80-94); Mean Platelet Volume 8.6 fL (7.4-10.4); Platelet Count 244 10^3/uL (150-450); Red Blood Count 4.38 10^6 /uL (4.18-5.48); Red Cell Distribution Width 14 % (10-15); White Blood Count 10.8 10^3/uL (3.5-10.8)
[2020-10-12 18:58] LABS: Albumin 4.4 g/dL (3.2-5.2); Albumin/Globulin Ratio 1.8 (1-3); Calcium 9.8 mg/dL (8.6-10.3); EGFR African American 65.9 (>60); EGFR Non-African American 54.5 (>60); Globulin 2.5 g/dL (2-4); Potassium 3.8 mmol/L (3.5-5.0); Total Bilirubin 0.3 mg/dL (0.2-1.0); Total Protein 6.9 g/dL (6.4-8.9)
[2020-10-12] MEDS ORDERED: NS 0.9% 1000 ml BAG 1,000 ML IV ONE (19:18)
[2020-10-13 08:47] LABS: HDL Cholesterol 21.5 mg/dL
[2020-10-13] MEDS: Nicotine PATCH 14 MG/24 HR PATCH TRANSDERM SCH (10:50)
[2020-10-13] MEDS: Vitamin THERAPEUTIC TAB PO SCH (10:50)
[2020-10-13] MEDS ORDERED: Ondansetron ODT 4 mg TAB 4 MG TAB PO PRN (10:53)
[2020-10-14] MEDS: Vitamin THERAPEUTIC TAB PO SCH (10:53)
[2020-10-14 11:46] LABS: Calcium 9.7 mg/dL (8.6-10.3); EGFR African American 103.2 (>60); EGFR Non-African American 85.3 (>60); Potassium 4.3 mmol/L (3.5-5.0)
[2020-10-14] MEDS: Nicotine PATCH 14 MG/24 HR PATCH TRANSDERM SCH (13:07)
[2020-10-15] MEDS: Nicotine PATCH 14 MG/24 HR PATCH TRANSDERM SCH (08:47)
[2020-10-15] MEDS: Vitamin THERAPEUTIC TAB PO SCH (08:47)
[2020-10-16] MEDS: Vitamin THERAPEUTIC TAB PO SCH (09:49)
[2020-10-16] MEDS: Nicotine PATCH 14 MG/24 HR PATCH TRANSDERM SCH (09:50)
[2020-10-17] MEDS: Vitamin THERAPEUTIC TAB PO SCH (07:15)
[2020-10-18] MEDS: Vitamin THERAPEUTIC TAB PO SCH (08:06)
[2020-10-19] MEDS: Vitamin THERAPEUTIC TAB PO SCH (07:49)
[2020-10-19] MEDS ORDERED: Ondansetron ODT 4 mg TAB 4 MG TAB PO PRN (09:45)
[2020-10-20] MEDS: Vitamin THERAPEUTIC TAB PO SCH (07:52)
[2020-10-21] MEDS: Vitamin THERAPEUTIC TAB PO SCH (08:19)
[2020-10-22] MEDS: Vitamin THERAPEUTIC TAB PO SCH (08:32)
[2020-10-23] MEDS: Vitamin THERAPEUTIC TAB PO SCH (08:42)
[2020-10-24] MEDS: Vitamin THERAPEUTIC TAB PO SCH (08:45)
[2020-10-25] MEDS: Vitamin THERAPEUTIC TAB PO SCH (08:31)
[2020-10-26] MEDS: Vitamin THERAPEUTIC TAB PO SCH (10:02)
[2020-10-27 08:00] LABS: ABS Eosinophils 0.2 10^3/ul (0-0.6); ABS Lymphocytes 2.3 10^3/ul (1.0-4.8); ABS Monocytes 0.8 10^3/ul (0-0.8); ABS Neutrophils 3.2 10^3/ul (1.5-7.7); Eosinophil % 2.7 %; Hematocrit 40 % (42-52); Hemoglobin 13.5 g/dL (14.0-18.0); Lymphocyte % 35.2 %; Mean Corpuscular HGB Conc 34 g/dL (31-36); Mean Corpuscular Hemoglobin 30 pg (27-31); Mean Corpuscular Volume 90 fL (80-94); Mean Platelet Volume 7.9 fL (7.4-10.4); Platelet Count 248 10^3/uL (150-450); Red Blood Count 4.45 10^6 /uL (4.18-5.48); Red Cell Distribution Width 14 % (10-15); White Blood Count 6.4 10^3/uL (3.5-10.8)
[2020-10-27] MEDS: Vitamin THERAPEUTIC TAB PO SCH (08:30)
[2020-10-27 09:18] VITALS: BP 155/85
== END 2020-10-27 15:00 | disposition home or self-care (01) | DRG 885 ==
LOC: ED 18:22 → BSU 10-11 10:22
PROVIDERS: ADMIT Psychiatry & Neurology Psychiatry; ATTEND Psychiatry & Neurology Psychiatry

== ENCOUNTER 2020-10-31 18:27 | Inpatient (IN) ==
[2020-10-31] MEDS ORDERED: Ondansetron ODT 4 mg TAB 4 MG TAB PO ONE (19:24)
[2020-10-31 20:09] LABS: Urine Appearance Clear; Urine Bilirubin Negative (Negative); Urine Blood Negative (Negative); Urine Color Yellow; Urine Glucose Negative (Negative); Urine Ketones Trace (Negative); Urine Nitrite Negative (Negative); Urine Protein Negative (Negative); Urine Specific Gravity 1.012 (1.002-1.030); Urine Urobilinogen Negative (Negative)
[2020-10-31 20:33] LABS: ABS Eosinophils 0.1 10^3/ul (0-0.6); ABS Lymphocytes 2.6 10^3/ul (1.0-4.8); ABS Monocytes 0.9 10^3/ul (0-0.8); ABS Neutrophils 5.7 10^3/ul (1.5-7.7); Eosinophil % 1.5 %; Hematocrit 39 % (42-52); Hemoglobin 13.6 g/dL (14.0-18.0); Lymphocyte % 27.5 %; Mean Corpuscular HGB Conc 35 g/dL (31-36); Mean Corpuscular Hemoglobin 31 pg (27-31); Mean Corpuscular Volume 90 fL (80-94); Mean Platelet Volume 7.7 fL (7.4-10.4); Platelet Count 294 10^3/uL (150-450); Red Blood Count 4.37 10^6 /uL (4.18-5.48); Red Cell Distribution Width 14 % (10-15); White Blood Count 9.4 10^3/uL (3.5-10.8)
[2020-10-31 20:48] LABS: Urine Benzodiazepine Screen None Detected (None Detect); Urine Cannabinoids Screen None Detected (None Detect); Urine Opiates Screen None Detected (None Detect)
[2020-10-31 20:52] LABS: ALT 16 U/L (7-52); AST 19 U/L (13-39); Albumin 4.7 g/dL (3.2-5.2); Alkaline Phosphatase 89 U/L (35-149); Anion Gap 9 mmol/L (2-11); Blood Urea Nitrogen 14 mg/dL (6-24); CO2 Carbon Dioxide 24 mmol/L (22-32); Calcium 9.7 mg/dL (8.6-10.3); Chloride 106 mmol/L (101-111); EGFR African American 127.1 (>60); Globulin 2.4 g/dL (2-4); Glucose 87 mg/dL (70-100); Potassium 3.9 mmol/L (3.5-5.0); Sodium 139 mmol/L (135-145); Total Protein 7.1 g/dL (6.4-8.9)
[2020-10-31 21:02] LABS: Alcohol, S < 13 mg/dL (<13); Salicylate < 2.50 mg/dL (<30)
[2020-10-31 21:16] LABS: TSH Ultra Thyroid Stim Horm 1.58 mcIU/mL (0.34-5.60)
[2020-10-31 21:21] LABS: Acetaminophen < 15 mcg/mL
[2020-10-31 23:29] LABS: Lithium < 0.10 mmol/L (0.6-1.2)
[2020-11-01] MEDS ORDERED: Al Hydrox/Mg Hydrox/Simet LIQ 30 ML UDC PO PRN (04:23)
[2020-11-01 04:51] LABS: Rapid COVID-19 Molecular Undetected (Undetected)
[2020-11-01] MEDS: Magnesium Sulfate CRYSTAL 454 GM BOX TOPICAL SCH ×4 (10:20→22:49)
[2020-11-01] MEDS: Vitamin THERAPEUTIC TAB PO SCH (10:20)
[2020-11-01] MEDS ORDERED: Polyethylene Glycol 3350 17 GM PACKET PO ONE (21:00)
[2020-11-01] MEDS ORDERED: Senna TAB 8.6 mg TAB PO ONE (21:00)
[2020-11-02 08:40] LABS: HDL Cholesterol 23.2 mg/dL
[2020-11-02] MEDS: Magnesium Sulfate CRYSTAL 454 GM BOX TOPICAL SCH ×4 (10:20→21:44)
[2020-11-02] MEDS: Vitamin THERAPEUTIC TAB PO SCH (10:20)
[2020-11-03] MEDS: Vitamin THERAPEUTIC TAB PO SCH (09:14)
[2020-11-03] MEDS: Magnesium Sulfate CRYSTAL 454 GM BOX TOPICAL SCH ×4 (09:16→21:19)
[2020-11-04] MEDS: Vitamin THERAPEUTIC TAB PO SCH (09:37)
[2020-11-04] MEDS: Magnesium Sulfate CRYSTAL 454 GM BOX TOPICAL SCH ×4 (09:37→20:30)
[2020-11-05] MEDS: Vitamin THERAPEUTIC TAB PO SCH (09:40)
[2020-11-05] MEDS: Magnesium Sulfate CRYSTAL 454 GM BOX TOPICAL SCH ×4 (09:41→23:12)
[2020-11-06] MEDS: Vitamin THERAPEUTIC TAB PO SCH ×2 (09:31→10:13)
[2020-11-06] MEDS: Magnesium Sulfate CRYSTAL 454 GM BOX TOPICAL SCH ×5 (09:31→21:56)
[2020-11-07] MEDS: Magnesium Sulfate CRYSTAL 454 GM BOX TOPICAL SCH ×4 (11:30→21:55)
[2020-11-07] MEDS: Vitamin THERAPEUTIC TAB PO SCH (11:31)
[2020-11-08] MEDS: Magnesium Sulfate CRYSTAL 454 GM BOX TOPICAL SCH ×4 (09:25→21:02)
[2020-11-08] MEDS: Vitamin THERAPEUTIC TAB PO SCH (09:25)
[2020-11-09] MEDS: Vitamin THERAPEUTIC TAB PO SCH (13:13)
[2020-11-09] MEDS: Magnesium Sulfate CRYSTAL 454 GM BOX TOPICAL SCH ×3 (13:13→21:56)
[2020-11-10] MEDS: Vitamin THERAPEUTIC TAB PO SCH (08:27)
[2020-11-10] MEDS: Magnesium Sulfate CRYSTAL 454 GM BOX TOPICAL SCH ×4 (08:27→21:01)
[2020-11-11] MEDS: Magnesium Sulfate CRYSTAL 454 GM BOX TOPICAL SCH ×4 (09:10→21:38)
[2020-11-11] MEDS: Vitamin THERAPEUTIC TAB PO SCH (09:10)
[2020-11-12] MEDS: Magnesium Sulfate CRYSTAL 454 GM BOX TOPICAL SCH ×4 (08:53→20:57)
[2020-11-12] MEDS: Vitamin THERAPEUTIC TAB PO SCH (08:53)
[2020-11-13] MEDS: Vitamin THERAPEUTIC TAB PO SCH (08:13)
[2020-11-13] MEDS: Magnesium Sulfate CRYSTAL 454 GM BOX TOPICAL SCH ×4 (08:13→21:22)
[2020-11-14] MEDS: Magnesium Sulfate CRYSTAL 454 GM BOX TOPICAL SCH (07:55)
[2020-11-14] MEDS: Vitamin THERAPEUTIC TAB PO SCH (09:24)
[2020-11-15] MEDS: Vitamin THERAPEUTIC TAB PO SCH (07:25)
[2020-11-16] MEDS: Vitamin THERAPEUTIC TAB PO SCH (08:48)
[2020-11-17] MEDS: Vitamin THERAPEUTIC TAB PO SCH (09:44)
[2020-11-18] MEDS: Vitamin THERAPEUTIC TAB PO SCH (08:38)
[2020-11-18] MEDS ORDERED: diPHENhydraMINE IV 50 MG/ML 1 ml VIAL (BENADRYL) ONE (13:10)
[2020-11-18] MEDS ORDERED: chlorproMAZINE 25 MG/ML 2 ML (50 MG) ONE (13:10)
[2020-11-18] MEDS ORDERED: diPHENhydraMINE IV 50 MG/ML 1 ml VIAL (BENADRYL) IM ONE (13:20)
[2020-11-18] MEDS ORDERED: chlorproMAZINE 25 MG/ML 2 ML (50 MG) IM ONE (13:20)
[2020-11-19] MEDS: Vitamin THERAPEUTIC TAB PO SCH (09:19)
[2020-11-20] MEDS: Vitamin THERAPEUTIC TAB PO SCH (09:33)
[2020-11-21] MEDS: Vitamin THERAPEUTIC TAB PO SCH (09:51)
[2020-11-21] MEDS ORDERED: Paliperidone SUSTENNA 234 MG/1.5 ML IM ONE (14:00)
[2020-11-22] MEDS: Vitamin THERAPEUTIC TAB PO SCH (08:59)
[2020-11-23] MEDS: Vitamin THERAPEUTIC TAB PO SCH (08:44)
[2020-11-23] MEDS ORDERED: Paliperidone SUSTENNA 156 MG/1 ML IM ONE (13:07)
[2020-11-24] MEDS: Vitamin THERAPEUTIC TAB PO SCH (08:54)
[2020-11-25] MEDS: Vitamin THERAPEUTIC TAB PO SCH (08:34)
[2020-11-26] MEDS: Vitamin THERAPEUTIC TAB PO SCH (08:22)
[2020-11-27] MEDS: Vitamin THERAPEUTIC TAB PO SCH (08:22)
[2020-11-27 09:24] LABS: ABS Eosinophils 0.1 10^3/ul (0-0.6); ABS Lymphocytes 1.8 10^3/ul (1.0-4.8); ABS Monocytes 0.9 10^3/ul (0-0.8); ABS Neutrophils 4.9 10^3/ul (1.5-7.7); Eosinophil % 1.5 %; Hematocrit 42 % (42-52); Hemoglobin 14.2 g/dL (14.0-18.0); Lymphocyte % 23.6 %; Mean Corpuscular HGB Conc 34 g/dL (31-36); Mean Corpuscular Hemoglobin 30 pg (27-31); Mean Corpuscular Volume 87 fL (80-94); Mean Platelet Volume 7.5 fL (7.4-10.4); Platelet Count 250 10^3/uL (150-450); Red Cell Distribution Width 14 % (10-15); White Blood Count 7.7 10^3/uL (3.5-10.8)
[2020-11-28] MEDS: Vitamin THERAPEUTIC TAB PO SCH (08:45)
[2020-11-28] MEDS: Nicotine GUM 2MG FRUIT FLAVOR PO PRN ×2 (12:58→18:23)
[2020-11-29] MEDS: Vitamin THERAPEUTIC TAB PO SCH (08:34)
[2020-11-29] MEDS: Nicotine GUM 2MG FRUIT FLAVOR PO PRN ×2 (09:00→20:44)
[2020-11-30] MEDS: Vitamin THERAPEUTIC TAB PO SCH (08:48)
[2020-11-30] MEDS: Nicotine GUM 2MG FRUIT FLAVOR PO PRN ×2 (15:15→20:35)
[2020-12-01] MEDS: Vitamin THERAPEUTIC TAB PO SCH (08:38)
[2020-12-01] MEDS: Nicotine GUM 2MG FRUIT FLAVOR PO PRN ×2 (09:16→12:44)
[2020-12-02] MEDS: Vitamin THERAPEUTIC TAB PO SCH (08:28)
[2020-12-03] MEDS: Vitamin THERAPEUTIC TAB PO SCH (08:48)
[2020-12-03] MEDS: Nicotine GUM 2MG FRUIT FLAVOR PO PRN ×3 (11:13→20:47)
[2020-12-04] MEDS: Vitamin THERAPEUTIC TAB PO SCH (08:27)
[2020-12-04] MEDS: Nicotine GUM 2MG FRUIT FLAVOR PO PRN ×4 (08:28→21:17)
[2020-12-05] MEDS: Vitamin THERAPEUTIC TAB PO SCH (08:34)
[2020-12-05] MEDS: Nicotine GUM 2MG FRUIT FLAVOR PO PRN ×5 (08:35→20:01)
[2020-12-05 17:17] VITALS: BP 139/77
[2020-12-06] MEDS: Nicotine GUM 2MG FRUIT FLAVOR PO PRN (08:12)
[2020-12-06] MEDS: Vitamin THERAPEUTIC TAB PO SCH (08:12)
== END 2020-12-06 09:00 | DRG 885 ==
LOC: ED 18:27 → BSU 11-01 03:03
PROVIDERS: ADMIT Psychiatry & Neurology Psychiatry; ATTEND Psychiatry & Neurology Psychiatry

== ENCOUNTER 2021-12-05 17:14 | Inpatient (IN) ==
[2021-12-05 21:45] LABS: ABS Eosinophils 0.1 10^3/ul (0-0.6); ABS Lymphocytes 1.9 10^3/ul (1.0-4.8); ABS Monocytes 0.8 10^3/ul (0-0.8); Eosinophil % 1.1 %; Hematocrit 40 % (42-52); Hemoglobin 13.2 g/dL (14.0-18.0); Lymphocyte % 24.4 %; Mean Corpuscular HGB Conc 33 g/dL (31-36); Mean Corpuscular Hemoglobin 29 pg (27-31); Mean Corpuscular Volume 89 fL (80-94); Mean Platelet Volume 7.9 fL (7.4-10.4); Platelet Count 267 10^3/uL (150-450); Red Blood Count 4.49 10^6 /uL (4.18-5.48); Red Cell Distribution Width 14 % (10-15); White Blood Count 7.8 10^3/uL (3.5-10.8)
[2021-12-05 22:09] LABS: ALT 10 U/L (7-52); AST 16 U/L (13-39); Albumin 5.1 g/dL (3.2-5.2); Alkaline Phosphatase 78 U/L (35-149); Anion Gap 7 mmol/L (2-11); Blood Urea Nitrogen 13 mg/dL (6-24); CO2 Carbon Dioxide 25 mmol/L (22-32); Calcium 10.5 mg/dL (8.6-10.3); Chloride 104 mmol/L (101-111); Globulin 2.5 g/dL (2-4); Glucose 109 mg/dL (70-100); Lipase 12 U/L (11.0-82.0); Magnesium 2.4 mg/dL (1.9-2.7); Potassium 4.3 mmol/L (3.5-5.0); Sodium 136 mmol/L (135-145); Total Protein 7.6 g/dL (6.4-8.9); eGFR CKD-EPI 109.7 (>60)
[2021-12-05 22:41] LABS: Lithium 0.16 mmol/L (0.6-1.2)
[2021-12-05] MEDS ORDERED: Haloperidol 5 mg/ml SDV IV/IM 5 MG/ML AMP IM ONE (23:55)
[2021-12-05] MEDS ORDERED: Lorazepam PYXIS KEY PRN (23:55)
[2021-12-05] MEDS ORDERED: LORazepam 2 mg VIAL 1 ml IM ONE (23:55)
[2021-12-06 00:59] LABS: Acetaminophen < 15 mcg/mL; Alcohol, S < 13 mg/dL (<13); Salicylate < 2.50 mg/dL (<30)
[2021-12-06 02:04] LABS: Urine Appearance Clear; Urine Bilirubin Negative (Negative); Urine Blood 1+ (Negative); Urine Color Yellow; Urine Glucose Negative (Negative); Urine Ketones Negative (Negative); Urine Nitrite Negative (Negative); Urine Protein Negative (Negative); Urine Specific Gravity 1.009 (1.002-1.030); Urine Urobilinogen Negative (Negative)
[2021-12-06 02:15] LABS: Urine Benzodiazepine Screen None Detected (None Detect); Urine Cannabinoids Screen None Detected (None Detect); Urine Opiates Screen None Detected (None Detect)
[2021-12-06 02:48] LABS: Urine Bacteria Absent (Absent); Urine Red Blood Cell Trace(0-2/hpf) (Absent); Urine White Blood Cell Trace(0-5/hpf) (Absent)
[2021-12-06] MEDS ORDERED: Ondansetron 4 mg VIAL 2 MG/ML 2 ml VIAL IV ONE (08:17)
[2021-12-06] MEDS ORDERED: Ondansetron ODT 4 mg TAB 4 MG TAB PO ONE (08:18)
[2021-12-06] MEDS ORDERED: Al Hydrox/Mg Hydrox/Simet LIQ 30 ML UDC PO PRN (09:06)
[2021-12-06] MEDS ORDERED: OLANZapine 10 mg TAB*ODT PO PRN (09:08)
[2021-12-06] MEDS ORDERED: Nicotine GUM 2MG FRUIT FLAVOR PO PRN (09:08)
[2021-12-06] MEDS: Nicotine GUM 4MG FRUIT FLAVOR PO PRN ×3 (15:22→19:52)
[2021-12-06] MEDS: Lithium Carbonate ER 450mg TAB PO SCH (19:50)
[2021-12-07] MEDS: Nicotine GUM 4MG FRUIT FLAVOR PO PRN ×5 (08:08→21:26)
[2021-12-07 08:37] LABS: HDL Cholesterol 32.7 mg/dL
[2021-12-07 11:29] LABS: Calcium 10.1 mg/dL (8.6-10.3)
[2021-12-07 11:35] LABS: TSH Ultra Thyroid Stim Horm 0.92 mcIU/mL (0.34-5.60)
[2021-12-07] MEDS: Lithium Carbonate ER 450mg TAB PO SCH (21:20)
[2021-12-07 22:47] LABS: Clozapine 116 ng/mL (350-600); Clozapine & Norclozapine Level 284 ng/mL; Norclozapine 168 ng/mL
[2021-12-08] MEDS: Nicotine GUM 4MG FRUIT FLAVOR PO PRN ×8 (06:57→23:21)
[2021-12-08] MEDS ORDERED: Senna TAB 8.6 mg TAB PO PRN (11:31)
[2021-12-08] MEDS: Lithium Carbonate ER 450mg TAB PO SCH (22:23)
[2021-12-09] MEDS: Nicotine GUM 4MG FRUIT FLAVOR PO PRN ×5 (08:34→19:12)
[2021-12-09] MEDS: Lithium Carbonate ER 450mg TAB PO SCH (20:44)
[2021-12-10] MEDS: Nicotine GUM 4MG FRUIT FLAVOR PO PRN ×7 (08:00→22:03)
[2021-12-10] MEDS: Lithium Carbonate ER 450mg TAB PO SCH (23:10)
[2021-12-11] MEDS: Nicotine GUM 4MG FRUIT FLAVOR PO PRN ×7 (05:07→22:15)
[2021-12-11] MEDS: Senna TAB 8.6 mg TAB PO SCH (14:02)
[2021-12-11] MEDS ORDERED: Lithium Carbonate ER 450mg TAB PO SCH (21:00)
[2021-12-11] MEDS: Lithium Carbonate ER 450mg TAB PO SCH (22:00)
[2021-12-11] MEDS: CMCS: Lithium Carb ER 300 mg TAB(NF) PO SCH (22:01)
[2021-12-12] MEDS: Nicotine GUM 4MG FRUIT FLAVOR PO PRN ×6 (06:37→21:39)
[2021-12-12] MEDS: Senna TAB 8.6 mg TAB PO SCH (08:24)
[2021-12-12] MEDS: Lithium Carbonate ER 450mg TAB PO SCH (22:52)
[2021-12-12] MEDS: CMCS: Lithium Carb ER 300 mg TAB(NF) PO SCH (22:52)
[2021-12-13] MEDS: Nicotine GUM 4MG FRUIT FLAVOR PO PRN ×4 (05:23→21:42)
[2021-12-13] MEDS: Senna TAB 8.6 mg TAB PO SCH ×2 (08:41→10:05)
[2021-12-13] MEDS: Lithium Carbonate ER 450mg TAB PO SCH (10:07)
[2021-12-13] MEDS: CMCS: Lithium Carb ER 300 mg TAB(NF) PO SCH (10:08)
[2021-12-13 11:56] LABS: ABS Eosinophils 0.1 10^3/ul (0-0.6); ABS Lymphocytes 1.6 10^3/ul (1.0-4.8); ABS Monocytes 0.6 10^3/ul (0-0.8); ABS Neutrophils 3.6 10^3/ul (1.5-7.7); Eosinophil % 1.9 %; Hematocrit 39 % (42-52); Hemoglobin 12.8 g/dL (14.0-18.0); Lymphocyte % 26.3 %; Mean Corpuscular HGB Conc 33 g/dL (31-36); Mean Corpuscular Hemoglobin 29 pg (27-31); Mean Corpuscular Volume 88 fL (80-94); Mean Platelet Volume 7.8 fL (7.4-10.4); Nucleated Red Blood Cells % 0.1; Platelet Count 241 10^3/uL (150-450); Red Blood Count 4.38 10^6 /uL (4.18-5.48); Red Cell Distribution Width 13 % (10-15); White Blood Count 5.9 10^3/uL (3.5-10.8)
[2021-12-14] MEDS: Nicotine GUM 4MG FRUIT FLAVOR PO PRN ×5 (07:20→17:38)
[2021-12-14] MEDS: Lithium Carb ER 300 mg TAB(NF) PO SCH (07:21)
[2021-12-14] MEDS: Lithium Carbonate ER 450mg TAB PO SCH (07:21)
[2021-12-14] MEDS: Senna TAB 8.6 mg TAB PO SCH (07:21)
[2021-12-15] MEDS: Nicotine GUM 4MG FRUIT FLAVOR PO PRN ×6 (00:34→20:46)
[2021-12-15] MEDS: Lithium Carbonate ER 450mg TAB PO SCH (08:57)
[2021-12-15] MEDS: Senna TAB 8.6 mg TAB PO SCH (08:57)
[2021-12-15] MEDS: Lithium Carb ER 300 mg TAB(NF) PO SCH (08:57)
[2021-12-16] MEDS: Nicotine GUM 4MG FRUIT FLAVOR PO PRN ×7 (02:43→21:51)
[2021-12-16] MEDS: Lithium Carbonate ER 450mg TAB PO SCH (08:16)
[2021-12-16] MEDS: Senna TAB 8.6 mg TAB PO SCH (08:17)
[2021-12-16] MEDS: Lithium Carb ER 300 mg TAB(NF) PO SCH (08:56)
[2021-12-17] MEDS: Nicotine GUM 4MG FRUIT FLAVOR PO PRN ×9 (01:56→21:16)
[2021-12-17] MEDS: Lithium Carb ER 300 mg TAB(NF) PO SCH (07:35)
[2021-12-17] MEDS: Lithium Carbonate ER 450mg TAB PO SCH (07:35)
[2021-12-17] MEDS: Senna TAB 8.6 mg TAB PO SCH ×2 (07:35→20:08)
[2021-12-18] MEDS: Nicotine GUM 4MG FRUIT FLAVOR PO PRN ×8 (02:51→20:00)
[2021-12-18] MEDS: Lithium Carb ER 300 mg TAB(NF) PO SCH (09:31)
[2021-12-18] MEDS: Lithium Carbonate ER 450mg TAB PO SCH (09:31)
[2021-12-18] MEDS: Senna TAB 8.6 mg TAB PO SCH ×2 (09:31→22:02)
[2021-12-19] MEDS: Nicotine GUM 4MG FRUIT FLAVOR PO PRN ×6 (04:01→19:29)
[2021-12-19] MEDS: Lithium Carbonate ER 450mg TAB PO SCH (08:23)
[2021-12-19] MEDS: Lithium Carb ER 300 mg TAB(NF) PO SCH (08:24)
[2021-12-19] MEDS: Senna TAB 8.6 mg TAB PO SCH ×2 (08:24→23:27)
[2021-12-20] MEDS: Nicotine GUM 4MG FRUIT FLAVOR PO PRN ×5 (02:37→20:04)
[2021-12-20] MEDS: Lithium Carb ER 300 mg TAB(NF) PO SCH ×2 (10:24→15:49)
[2021-12-20] MEDS: Lithium Carbonate ER 450mg TAB PO SCH ×2 (10:25→15:48)
[2021-12-20] MEDS: Senna TAB 8.6 mg TAB PO SCH ×2 (10:25→15:48)
[2021-12-21] MEDS: Nicotine GUM 4MG FRUIT FLAVOR PO PRN ×5 (00:03→17:47)
[2021-12-21] MEDS: Senna TAB 8.6 mg TAB PO SCH ×2 (07:04→17:08)
[2021-12-21 07:21] LABS: Hematocrit 40 % (42-52); Hemoglobin 13.2 g/dL (14.0-18.0); Mean Corpuscular HGB Conc 33 g/dL (31-36); Mean Corpuscular Hemoglobin 29 pg (27-31); Mean Corpuscular Volume 90 fL (80-94); Mean Platelet Volume 7.5 fL (7.4-10.4); Platelet Count 267 10^3/uL (150-450); Red Blood Count 4.47 10^6 /uL (4.18-5.48); Red Cell Distribution Width 14 % (10-15); White Blood Count 5.8 10^3/uL (3.5-10.8)
[2021-12-21] MEDS: Lithium Carb ER 300 mg TAB(NF) PO SCH (17:06)
[2021-12-21] MEDS: Lithium Carbonate ER 450mg TAB PO SCH (17:06)
[2021-12-22] MEDS: Nicotine GUM 4MG FRUIT FLAVOR PO PRN ×6 (04:45→22:41)
[2021-12-22] MEDS: Senna TAB 8.6 mg TAB PO SCH ×2 (07:35→16:12)
[2021-12-22] MEDS: Lithium Carb ER 300 mg TAB(NF) PO SCH (16:11)
[2021-12-22] MEDS: Lithium Carbonate ER 450mg TAB PO SCH (16:11)
[2021-12-23] MEDS: Nicotine GUM 4MG FRUIT FLAVOR PO PRN ×5 (05:14→16:36)
[2021-12-23] MEDS: Senna TAB 8.6 mg TAB PO SCH ×2 (07:58→17:26)
[2021-12-23] MEDS: Lithium Carbonate ER 450mg TAB PO SCH (16:35)
[2021-12-23] MEDS: Lithium Carb ER 300 mg TAB(NF) PO SCH (16:36)
[2021-12-24] MEDS: Nicotine GUM 4MG FRUIT FLAVOR PO PRN ×8 (00:18→18:58)
[2021-12-24] MEDS: Senna TAB 8.6 mg TAB PO SCH ×2 (07:01→16:38)
[2021-12-24] MEDS ORDERED: Lithium Carb ER 300 mg TAB(NF) PO SCH (16:00)
[2021-12-24] MEDS: Lithium Carb ER 300 mg TAB(NF) PO SCH (16:38)
[2021-12-25] MEDS: Nicotine GUM 4MG FRUIT FLAVOR PO PRN ×7 (00:02→21:19)
[2021-12-25] MEDS: Senna TAB 8.6 mg TAB PO SCH ×2 (09:26→17:37)
[2021-12-25] MEDS: Lithium Carb ER 300 mg TAB(NF) PO SCH (17:37)
[2021-12-26] MEDS: Nicotine GUM 4MG FRUIT FLAVOR PO PRN ×5 (03:11→22:53)
[2021-12-26] MEDS: Senna TAB 8.6 mg TAB PO SCH ×2 (09:07→22:11)
[2021-12-26] MEDS: Lithium Carb ER 300 mg TAB(NF) PO SCH (22:11)
[2021-12-27] MEDS: Nicotine GUM 4MG FRUIT FLAVOR PO PRN ×4 (08:01→23:54)
[2021-12-27] MEDS: Senna TAB 8.6 mg TAB PO SCH ×2 (10:02→16:22)
[2021-12-27] MEDS ORDERED: OLANZapine IM (NF) 10 MG VIAL IM PRN (10:45)
[2021-12-27] MEDS: Lithium Carb ER 300 mg TAB(NF) PO SCH ×2 (16:22→17:43)
[2021-12-28] MEDS: Nicotine GUM 4MG FRUIT FLAVOR PO PRN ×3 (06:02→15:52)
[2021-12-28] MEDS: Senna TAB 8.6 mg TAB PO SCH ×2 (08:58→15:53)
[2021-12-28] MEDS ORDERED: OLANZapine IM (NF) 10 MG VIAL IM PRN (10:33)
[2021-12-28] MEDS: Lithium Carb ER 300 mg TAB(NF) PO SCH (15:50)
[2021-12-29] MEDS: Nicotine GUM 4MG FRUIT FLAVOR PO PRN ×6 (03:22→21:43)
[2021-12-29] MEDS: Senna TAB 8.6 mg TAB PO SCH ×2 (07:38→15:14)
[2021-12-29] MEDS: Lithium Carb ER 300 mg TAB(NF) PO SCH (15:09)
[2021-12-30] MEDS: Nicotine GUM 4MG FRUIT FLAVOR PO PRN ×4 (05:49→23:51)
[2021-12-30] MEDS: Senna TAB 8.6 mg TAB PO SCH ×2 (07:54→15:38)
[2021-12-30] MEDS: Lithium Carb ER 300 mg TAB(NF) PO SCH (15:38)
[2021-12-31] MEDS: Senna TAB 8.6 mg TAB PO SCH ×2 (07:33→16:00)
[2021-12-31] MEDS: Nicotine GUM 4MG FRUIT FLAVOR PO PRN ×4 (07:33→17:13)
[2021-12-31] MEDS: Lithium Carb ER 300 mg TAB(NF) PO SCH (16:00)
[2022-01-01] MEDS: Nicotine GUM 4MG FRUIT FLAVOR PO PRN ×5 (02:50→19:17)
[2022-01-01] MEDS: Senna TAB 8.6 mg TAB PO SCH ×2 (09:32→19:20)
[2022-01-01] MEDS: Lithium Carb ER 300 mg TAB(NF) PO SCH (19:14)
[2022-01-02] MEDS: Nicotine GUM 4MG FRUIT FLAVOR PO PRN ×3 (07:34→15:53)
[2022-01-02] MEDS: Senna TAB 8.6 mg TAB PO SCH ×2 (07:34→18:43)
[2022-01-02] MEDS: Lithium Carb ER 300 mg TAB(NF) PO SCH (15:50)
[2022-01-03] MEDS: Nicotine GUM 4MG FRUIT FLAVOR PO PRN ×5 (06:11→20:20)
[2022-01-03] MEDS: Senna TAB 8.6 mg TAB PO SCH ×2 (08:43→16:00)
[2022-01-03] MEDS: Lithium Carb ER 300 mg TAB(NF) PO SCH (16:01)
[2022-01-04] MEDS: Nicotine GUM 4MG FRUIT FLAVOR PO PRN ×4 (05:48→17:34)
[2022-01-04] MEDS: Senna TAB 8.6 mg TAB PO SCH ×2 (08:17→16:41)
[2022-01-04 16:21] LABS: ABS Eosinophils 0.2 10^3/ul (0-0.6); ABS Lymphocytes 2.5 10^3/ul (1.0-4.8); ABS Monocytes 0.9 10^3/ul (0-0.8); ABS Neutrophils 4.2 10^3/ul (1.5-7.7); Eosinophil % 2.3 %; Hematocrit 39 % (42-52); Hemoglobin 12.7 g/dL (14.0-18.0); Mean Corpuscular HGB Conc 33 g/dL (31-36); Mean Corpuscular Hemoglobin 29 pg (27-31); Mean Corpuscular Volume 90 fL (80-94); Mean Platelet Volume 7.6 fL (7.4-10.4); Platelet Count 288 10^3/uL (150-450); Red Blood Count 4.35 10^6 /uL (4.18-5.48); Red Cell Distribution Width 13 % (10-15); White Blood Count 7.7 10^3/uL (3.5-10.8)
[2022-01-04] MEDS: Lithium Carb ER 300 mg TAB(NF) PO SCH (16:40)
[2022-01-05] MEDS: Nicotine GUM 4MG FRUIT FLAVOR PO PRN ×5 (02:26→16:26)
[2022-01-05] MEDS: Senna TAB 8.6 mg TAB PO SCH ×2 (09:00→16:29)
[2022-01-05] MEDS: Lithium Carb ER 300 mg TAB(NF) PO SCH (16:25)
[2022-01-06] MEDS: Nicotine GUM 4MG FRUIT FLAVOR PO PRN ×5 (05:32→16:12)
[2022-01-06] MEDS: Senna TAB 8.6 mg TAB PO SCH ×2 (08:22→18:09)
[2022-01-06] MEDS: Haloperidol LIQ ORALSYR 2 MG/ML PO PRN (12:50)
[2022-01-06] MEDS ORDERED: Lithium Carb ER 300 mg TAB(NF) PO ONE (17:00)
[2022-01-06] MEDS ORDERED: Lithium Carbonate ER 450mg TAB PO ONE (17:00)
[2022-01-06] MEDS: Lithium Carb ER 300 mg TAB(NF) PO SCH (17:51)
[2022-01-07] MEDS: Nicotine GUM 4MG FRUIT FLAVOR PO PRN ×8 (01:11→21:44)
[2022-01-07] MEDS: Senna TAB 8.6 mg TAB PO SCH ×2 (07:25→15:30)
[2022-01-07] MEDS ORDERED: Lithium Carb ER 300 mg TAB(NF) PO SCH (16:00)
[2022-01-07] MEDS: Lithium Carb ER 300 mg TAB(NF) PO SCH (20:33)
[2022-01-08] MEDS: Nicotine GUM 4MG FRUIT FLAVOR PO PRN ×8 (05:49→21:55)
[2022-01-08] MEDS: Senna TAB 8.6 mg TAB PO SCH ×2 (08:04→21:43)
[2022-01-08] MEDS: Lithium Carb ER 300 mg TAB(NF) PO SCH (21:45)
[2022-01-09] MEDS: Nicotine GUM 4MG FRUIT FLAVOR PO PRN ×6 (05:54→19:33)
[2022-01-09] MEDS: Senna TAB 8.6 mg TAB PO SCH ×2 (08:22→16:03)
[2022-01-09] MEDS: Lithium Carb ER 300 mg TAB(NF) PO SCH (19:36)
[2022-01-10] MEDS: Senna TAB 8.6 mg TAB PO SCH ×2 (07:16→16:25)
[2022-01-10] MEDS: Nicotine GUM 4MG FRUIT FLAVOR PO PRN ×6 (07:16→20:37)
[2022-01-10] MEDS: Haloperidol LIQ ORALSYR 2 MG/ML PO PRN ×2 (11:12→13:40)
[2022-01-10] MEDS: Lithium Carb ER 300 mg TAB(NF) PO SCH (20:35)
[2022-01-11] MEDS: Nicotine GUM 4MG FRUIT FLAVOR PO PRN ×6 (05:46→21:54)
[2022-01-11] MEDS: Senna TAB 8.6 mg TAB PO SCH ×2 (07:47→17:28)
[2022-01-11] MEDS: Lithium Carb ER 300 mg TAB(NF) PO SCH (21:53)
[2022-01-12] MEDS: Nicotine GUM 4MG FRUIT FLAVOR PO PRN ×7 (07:36→20:28)
[2022-01-12] MEDS: Haloperidol LIQ ORALSYR 2 MG/ML PO PRN (08:34)
[2022-01-12] MEDS: Senna TAB 8.6 mg TAB PO SCH ×2 (08:34→16:26)
[2022-01-12] MEDS: Lithium Carb ER 300 mg TAB(NF) PO SCH (20:27)
[2022-01-13] MEDS: Nicotine GUM 4MG FRUIT FLAVOR PO PRN ×8 (07:20→21:32)
[2022-01-13] MEDS: Senna TAB 8.6 mg TAB PO SCH ×2 (07:31→15:33)
[2022-01-13] MEDS: Lithium Carb ER 300 mg TAB(NF) PO SCH (22:02)
[2022-01-14] MEDS: Nicotine GUM 4MG FRUIT FLAVOR PO PRN ×8 (05:45→22:10)
[2022-01-14] MEDS: Senna TAB 8.6 mg TAB PO SCH ×2 (09:49→22:11)
[2022-01-14] MEDS: Lithium Carb ER 300 mg TAB(NF) PO SCH (22:11)
[2022-01-15] MEDS: Nicotine GUM 4MG FRUIT FLAVOR PO PRN ×6 (04:39→23:10)
[2022-01-15] MEDS: Senna TAB 8.6 mg TAB PO SCH ×2 (08:16→22:16)
[2022-01-15 18:22] VITALS: BP 142/72
[2022-01-15] MEDS: Lithium Carb ER 300 mg TAB(NF) PO SCH (22:15)
[2022-01-16] MEDS: Senna TAB 8.6 mg TAB PO SCH (08:47)
[2022-01-16] MEDS: Nicotine GUM 4MG FRUIT FLAVOR PO PRN (08:48)
== END 2022-01-16 10:20 | disposition short-term general hospital (02) | DRG 885 ==
LOC: ED 17:14 → EDHOLD 12-06 09:06 → BSU 12-06 10:39
PROVIDERS: ADMIT Psychiatry & Neurology Psychiatry; ATTEND Psychiatry & Neurology Psychiatry

== ENCOUNTER 2024-02-21 16:30 | Inpatient (IN) ==
[2024-02-21] MEDS: Midazolam 5 mg/ml concentrated 5 mg/ml 1 ml VIAL ONE (17:05)
[2024-02-21] MEDS: Haloperidol 5 mg/ml SDV IV/IM 5 MG/ML AMP IM ONE (17:05)
[2024-02-21 18:06] LABS: ABS Lymphocytes 1.4 10^3/uL (1.0-4.8); ABS Monocytes 0.9 10^3/uL (0.0-1.1); ABS Neutrophils 7.9 10^3/uL (1.5-7.6); ABS Nucleated RBC 0.01 10^3/ul; Eosinophil % 0.2 %; Hematocrit 36.8 % (38-53); Hemoglobin 12.2 g/dL (13.2-16.3); Lymphocyte % 13.8 %; Mean Corpuscular Hemoglobin 26.7 pg (27-33); Mean Corpuscular Hgb Conc 33.3 g/dL (31-36); Mean Corpuscular Volume 80.4 fL (80-97); Mean Platelet Volume 8.4 fL (7.5-11.2); Platelet Count 320 10^3/uL (150-450); Red Blood Count 4.57 10^6/uL (4.06-5.63); Red Cell Distribution Width 16.5 % (12-17); White Blood Count 10.3 10^3/uL (3.6-10.2)
[2024-02-21 19:01] LABS: Urine Benzodiazepine Screen Presumptive Positive (None Detect); Urine Cannabinoids Screen None Detected (None Detect); Urine Opiates Screen None Detected (None Detect)
[2024-02-21 19:57] LABS: ALT 26 U/L (7-52); AST 30 U/L (13-39); Acetaminophen < 15 mcg/mL; Albumin/Globulin Ratio 1.9 (1-3); Alcohol, S < 13 mg/dL (<13); Alkaline Phosphatase 97 U/L (35-149); Anion Gap 15 mmol/L (2-16); Blood Urea Nitrogen 22 mg/dL (6-24); CO2 Carbon Dioxide 18 mmol/L (22-32); Calcium 10.1 mg/dL (8.6-10.3); Chloride 103 mmol/L (101-111); Creatinine, Serum 1.11 mg/dL (0.67-1.17); Globulin 2.7 g/dL (2-4); Glucose 121 mg/dL (70-100); Potassium 4.1 mmol/L (3.5-5.0); Salicylate < 2.50 mg/dL (<30); Sodium 136 mmol/L (135-145); Total Bilirubin 0.5 mg/dL (0.2-1.0); Total Protein 7.7 g/dL (6.4-8.9)
[2024-02-21] MEDS ORDERED: Al Hydrox/Mg Hydrox/Simet LIQ 30 ML UDC PO PRN (19:58)
[2024-02-21 20:11] LABS: TSH Ultra Thyroid Stim Horm 1.75 mcIU/mL (0.34-5.60)
[2024-02-21] MEDS: Nicotine GUM 4MG FRUIT FLAVOR PO ONE (21:25)
[2024-02-22] MEDS: Nicotine GUM 4MG FRUIT FLAVOR PO ONE ×3 (02:09→15:05)
[2024-02-22] MEDS: Vitamin THERAPEUTIC TAB PO SCH (10:28)
[2024-02-22] MEDS: Nicotine GUM 4MG FRUIT FLAVOR PO PRN (15:05)
[2024-02-22] MEDS: Nicotine PATCH 21 MG/24 HR PATCH TRANSDERM SCH (15:15)
[2024-02-22] MEDS: Lithium Carbonate ER 450mg TAB PO SCH (20:23)
[2024-02-23 08:04] LABS: HDL Cholesterol 21.1 mg/dL
[2024-02-24 17:03] LABS: Clozapine <25 ng/mL (350-600); Clozapine & Norclozapine Level Unable to calculate ng/mL; Norclozapine <25 ng/mL
[2024-02-27] MEDS: Lithium Carb ER 300 mg TAB(NF) PO SCH (20:07)
[2024-02-29 07:39] LABS: ABS Eosinophils 0.3 10^3/uL (0.0-0.5); ABS Lymphocytes 2.9 10^3/uL (1.0-4.8); ABS Monocytes 0.7 10^3/uL (0.0-1.1); ABS Neutrophils 2.9 10^3/uL (1.5-7.6); ABS Nucleated RBC 0.01 10^3/ul; Hematocrit 33.8 % (38-53); Hemoglobin 11.2 g/dL (13.2-16.3); Lymphocyte % 42.8 %; Mean Corpuscular Hemoglobin 26.2 pg (27-33); Mean Corpuscular Hgb Conc 33.1 g/dL (31-36); Mean Corpuscular Volume 79.2 fL (80-97); Mean Platelet Volume 8.7 fL (7.5-11.2); Nucleated Red Blood Cells % 0.1 %/100WBC (0.0-0.8); Platelet Count 256 10^3/uL (150-450); Red Blood Count 4.26 10^6/uL (4.06-5.63); Red Cell Distribution Width 16.6 % (12-17); White Blood Count 6.7 10^3/uL (3.6-10.2)
[2024-03-04 16:18] LABS: Hematocrit 35.1 % (38-53); Hemoglobin 11.5 g/dL (13.2-16.3); Mean Corpuscular Hemoglobin 26.3 pg (27-33); Mean Corpuscular Hgb Conc 32.8 g/dL (31-36); Mean Corpuscular Volume 80.1 fL (80-97); Mean Platelet Volume 8.7 fL (7.5-11.2); Platelet Count 306 10^3/uL (150-450); Red Blood Count 4.38 10^6/uL (4.06-5.63); Red Cell Distribution Width 17.2 % (12-17); White Blood Count 8.1 10^3/uL (3.6-10.2)
[2024-03-04 22:55] LABS: Clozapine 621 ng/mL (350-600); Clozapine & Norclozapine Level 852 ng/mL; Norclozapine 231 ng/mL
[2024-03-17] MEDS: Nicotine GUM 2MG FRUIT FLAVOR PO PRN (18:16)
[2024-03-18] MEDS: Nicotine GUM 4MG FRUIT FLAVOR PO PRN (17:22)
[2024-03-23 07:54] LABS: ABS Eosinophils 0.1 10^3/uL (0.0-0.5); ABS Lymphocytes 2.6 10^3/uL (1.0-4.8); ABS Monocytes 0.8 10^3/uL (0.0-1.1); ABS Neutrophils 2.1 10^3/uL (1.5-7.6); ABS Nucleated RBC 0.01 10^3/ul; Eosinophil % 2.4 %; Hematocrit 34.9 % (38-53); Hemoglobin 11.7 g/dL (13.2-16.3); Lymphocyte % 45.8 %; Mean Corpuscular Hemoglobin 26.7 pg (27-33); Mean Corpuscular Hgb Conc 33.4 g/dL (31-36); Mean Corpuscular Volume 79.8 fL (80-97); Mean Platelet Volume 7.8 fL (7.5-11.2); Nucleated Red Blood Cells % 0.1 %/100WBC (0.0-0.8); Platelet Count 294 10^3/uL (150-450); Red Blood Count 4.38 10^6/uL (4.06-5.63); Red Cell Distribution Width 18.1 % (12-17); White Blood Count 5.7 10^3/uL (3.6-10.2)
[2024-03-25 09:50] VITALS: BP 169/108
== END 2024-03-25 13:15 | disposition home or self-care (01) | DRG 885 ==
LOC: ED 16:30 → EDHOLD 20:06 → BSU 20:11
PROVIDERS: ADMIT Psychiatry & Neurology Addiction Psychiatry; ATTEND Student in an Organized Health Care Education/Training Program